=== PATIENT | female | born 1965 | race Caucasian/White ===

== ENCOUNTER 2019-04-27 14:35 | Outpatient (CLI) | payer MEDICAID, SELFPAY ==
[2019-04-27 15:24] LABS: Immunoglobulin IGG 584 mg/dL (700-1600); Immunoglobulin IGM 25 mg/dL (40-230)
[2019-04-27 16:24] LABS: Immunoglobulin IGA < 50 mg/dL (70-400)
== END 2019-04-27 14:36 | disposition home or self-care (01) ==
LOC: LAB 14:44
PROVIDERS: Family Provider Nurse Practitioner Family; PCP Nurse Practitioner Family; Visit Provider Internal Medicine Critical Care Medicine
DX: J67.9 Hypersensitivity pneumonitis due to unspecified organic dust (principal)
CPT/HCPCS: 36415; 82784

== ENCOUNTER 2019-05-18 14:25 | Outpatient (CLI) | payer MEDICAID, SELFPAY ==
--- NOTE | 2019-05-18 14:30 | CT_ITS ---
WS: [id number] High-resolution noncontrast chest CT. HISTORY: Evaluation of ILD TECHNIQUE: Supine and prone 1.25 mm imaging is performed through the lungs. Inspiration and expirator y imaging is also included. All CT scans at [facility] use at least one of these dose opti mization techniques: automated exposure control; mA and/or kV adjustment per patient size (includes t argeted exams where dose is matched to clinical indication); or iterative reconstruction. CONTRAST: None DLP: 1486.55 mGycm COMPARISON: 01/04/2019 and 05/28/2018 Lungs and central airway: Pulmonary hyperexpansion with changes of emphysema. Predominantly nodular i nterstitial thickening in the upper lung field bilaterally but greatest on the LEFT. There is pleural thickening in the LEFT upper thorax with mild bronchiectasis. Linear areas of interstitial thickenin g do not change on prone positioning. Bronchiectasis is also noted in the upper lung carpenter. There is volume loss and some tethering in the LEFT upper lobe. Mild nodular interstitial thickening continue s to a lesser extent in the RIGHT middle lobe and in the lower lung carpenter. Pleura: No pleural effusions. Mild pleural thickening LEFT upper lobe. Heart and pericardium: Normal size heart. No pericardial effusion. Mediastinum and davon: No adenopathy. Vessels: Normal size pulmonary artery and aorta. Chest wall and lower neck: No soft tissue masses. Upper abdomen: Calcification of the splenic hilum. Osseous structures: No destructive process. CT/CT chest wo con [id number] IMPRESSION: 1. Upper lobe predominance reticular nodular airspace disease with bronchiecta sis and mild volume loss in the LEFT upper lobe. Consider chronic hypersensitiv ity pneumonia and nonspecific interstitial pneumonia. 2. No pleural effusion. 3. Chronic emphysema.
== END 2019-05-18 14:26 | disposition home or self-care (01) ==
LOC: RADWPI 14:29
PROVIDERS: Family Provider Nurse Practitioner Family; PCP Nurse Practitioner Family; Visit Provider Internal Medicine Critical Care Medicine
DX: J84.9 Interstitial pulmonary disease, unspecified (principal); J47.9 Bronchiectasis, uncomplicated; J43.9 Emphysema, unspecified
CPT/HCPCS: 71250

== ENCOUNTER → 2019-06-02 13:58 | Outpatient (BNVA) | payer MEDICAID, SELFPAY | PROVIDERS: Family Provider Nurse Practitioner Family; PCP Nurse Practitioner Family; Visit Provider Nurse Practitioner | DX: F43.12 Post-traumatic stress disorder, chronic (principal); F34.0 Cyclothymic disorder | CPT/HCPCS: 90832; 99213 ==

== ENCOUNTER 2019-06-15 14:29 | Outpatient (CLI) | payer MEDICAID, SELFPAY ==
--- NOTE | 2019-06-15 15:33 | PFTS_ITS ---
Date of Study:06/15/2019 Date of Dictation: MECHANICS: Forced vital capacity (FVC) is normal. Forced expiratory volume in one second (FEV1) is normal. FEV1/FVC is normal. FLOW VOLUME LOOP: Normal. LUNG VOLUMES: Total lung capacity (TLC) is normal. Residual volume (RV) is reduced. DIFFUSING CAPACITY FOR CARBON MONOXIDE: Normal. INTERPRETATION: The pulmonary function tests are normal. The total lung capacity is normal. Gas exchange is normal. MTDD
== END 2019-06-15 14:30 | disposition home or self-care (01) ==
LOC: RT 14:31
PROVIDERS: Family Provider Nurse Practitioner Family; PCP Nurse Practitioner Family; Visit Provider Internal Medicine Critical Care Medicine
DX: R06.02 Shortness of breath (principal)
CPT/HCPCS: 94010; 94726; 94729

== ENCOUNTER → 2019-08-25 08:28 | Outpatient (BNVA) | payer MEDICAID, SELFPAY | PROVIDERS: Family Provider Nurse Practitioner Family; Visit Provider Nurse Practitioner | DX: F34.0 Cyclothymic disorder (principal); F43.12 Post-traumatic stress disorder, chronic | CPT/HCPCS: 99213 ==

== ENCOUNTER 2019-10-10 09:46 | Outpatient (CLI) | payer MEDICAID, SELFPAY ==
[2019-10-10 10:27] LABS: Basophils # 0.1 10^3/uL (0.0-0.1); Basophils % 1.1 %; Eosinophils # 0.2 10^3/uL (0.0-0.8); Eosinophils % 3.4 %; Hematocrit 38.1 % (37.0-47.0); Hemoglobin 12.6 g/dL (11.5-15.3); Lymphocytes # 1.2 10^3/uL (0.8-4.8); Lymphocytes % 23.3 %; Mean Corpuscular HGB Conc 33.1 g/dL (30.0-36.0); Mean Corpuscular Hemoglobin 31.5 pg (28.0-34.0); Mean Corpuscular Volume 95.3 fL (81-99); Mean Platelet Volume 9.1 fL (7.4-10.4); Monocytes # 0.5 10^3/uL (0.2-0.9); Monocytes % 9.6 %; Neutrophils # 3.3 10^3/uL (1.8-7.7); Neutrophils % 62.4 %; Nucleated Red Blood Cells % 0 %; Platelet Count 221 10^3/cmm (130-400); Red Cell Distribution Width 11.8 % (12.1-15.1); White Blood Count 5.3 10^3/uL (4.0-10.0)
[2019-10-10 11:02] LABS: Alanine Aminotransferase 15 U/L (0-33); Albumin Level 4.4 g/dL (3.5-5.2); Alkaline Phosphatase 117 IU/L (35-105); Anion Gap 15.5 (5-19); Aspartate Amino Transferase 24 U/L (0-32); Blood Urea Nitrogen 18 mg/dL (6-20); Calcium 9.4 mg/dL (8.5-10.5); Carbon Dioxide 25 mmol/L (22-29); Chloride 103 mmol/L (98-107); Globulin 1.7 g/dL (1.3-4.6); Glucose 111 mg/dL (65-115); Immunoglobulin IGG 502 mg/dL (700-1600); Immunoglobulin IGM 25 mg/dL (40-230); Lactate Dehydrogenase 257 U/L (135-214); Osmolality Calculated 285 mOsm/kg (285-295); Potassium 4.5 mmol/L (3.5-5.1); Sodium 139 mmol/L (136-145); Total Bilirubin 0.2 mg/dL (0.15-1.2); Total Protein 6.1 g/dL (6.6-8.7)
[2019-10-10 11:19] LABS: Immunoglobulin IGA < 50 mg/dL (70-400)
[2019-10-10 11:39] LABS: Erythrocyte Sedimentation Rate 12 mm/hr (0-15)
--- NOTE | 2019-10-10 20:36 | ONC FU_ITS ---
Dr. Yadav Patient Follow-Up Note Patient: Hortencia Sheldon Unit #: [id number]: 1965 Dicatated By: Srinivas Yadav M.D.Date of Visit:Oct 10, 2019 Onc Med Follow-up/Prog Note Chief Complaint: Lymphoma/iterstitial lung disease. History of Present Illness: This is a 54 year-old woman with extranodal marginal zone lymphoma. 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 She had stage III disease. She had complete response to treatment with 6 cycles of R-CHOP chemotherapy, which she completed in 2000. In October 2013 she was found on [address] scan to have multiple pulmonary nodules in the left upper lobe/lingula. She underwent bronchoscopy in October 2013 and in December 2013, with inconclusive biopsies on both occasions. She then underwent a VATS procedure in January 2014. Pathology at that time was reviewed at [facility] with the diagnosis of extranodal marginal zone lymphoma. She was then given further chemotherapy with bendamustine/Rituxan. As of September 2014 she had completed 6 cycles of treatment. She did have good response by follow-up CT scan, and she then began maintenance Rituxan at 2 month intervals. During subsequent follow-up, she was found on CT scan to have new groundglass airspace disease in the left lower lobe. At that point she was seen for second opinion evaluation at [facility]. It was recommended that she just continue her maintenance Rituxan. Her follow-up CT scans of the chest, abdomen, and pelvis on 02/12/2016 showed near complete resolution of the groundglass and airspace opacity in the lateral aspect of the left lower lobe, but with new groundglass and linear airspace opacity in the lateral aspect of the right lower lobe compared to previous study from June 2015. She was seen here in June 2016 because she desired to continue her care closer to home. She returned here on 08/26/2016 for her final infusion of maintenance Rituxan. She tolerated it well. Restaging CT scans of the chest, abdomen, and pelvis on 11/20/2016 showed stable groundglass infiltrates and parenchymal scarring in the left upper lobe, unchanged from previous studies. There were slightly more progressed tree in bud infiltrates within the right mddle lobe. There was no mediastinal or hilar adenopathy noted and there was no evidence of disease progression in the abdomen or pelvis. She then continued on observation/expectant management. Her medical history is otherwise significant for ulcerative colitis, GERD, and chronic insomnia. She has a history of smoking 1 pack of cigarettes daily, but only for 7 years. She quit smoking at age 29. INTERIM HISTORY: Her surveillance CT scans of the chest, abdomen, and pelvis on 09/11/2017 showed extensive progression of reticular nodular airspace disease throughout both lungs, greatest in the upper lobes. There was no lymphadenopathy noted in the chest, abdomen, or pelvis. She was treated empirically with a 14 day course of Levaquin and fluconazole. Repeat CT scan of the chest on 11/02/2017 showed no improvement in the nodular and reticular nodular airspace disease throughout both lungs. Arrangements were then made for pulmonary consultation with in [place]. She underwent bronchoscopy with transbronchial lung biopsies on 12/15/2017. Pathology showed multiple noncaseating granulomas, suspicious for sarcoid. It was sent to [facility] for review, and there was no evidence of lymphoma or other malignancy. She had a follow-up visit with Dr. Sheldon on 12/23/2017. Given the findings on the transbronchial lung biopsies, she was given a 6-week course of steroid therapy. Restaging CT scans of the chest, abdomen, and pelvis on 05/28/2018 showed chronic changes of fibrosis, atelectasis, and interstitial lung disease throughout the lungs, but with no significant progression of disease. There was no adenopathy or other evidence of recurrent lymphoma. She continued observation/expectant management. Repeat chest CT on 01/04/2019 showed significant progression of bilateral upper lobe and to a lesser extent bilateral lower lobe and right middle lobe reticulonodular interstitial lung disease. There was no evidence of lymphadenopathy. With those findings she was referred to Dr. Patel. On 02/28/2019 she underwent right thoracoscopy with biopsy of the right upper lobe. Pathology showed diffuse/extensive granulomatous and chronic inflammation. There was no evidence of malignancy. The stains for microorganisms were negative. She was then referred to Dr. 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 Her high resolution CT of the chest showed reticular opacities involving predominantly the upper lobes bilaterally. There was also evidence of bronchiectasis. Her hypersensitivity pneumonitis panel was negative. She was confirmed to have low serum immunoglobulin levels. She is seen for a follow-up visit. Overall she feels better. She is active, but she forces herself to do so. She is watching her diet. Her weight is down about 5 pounds. She reports having slight fever on a daily basis, with temperatures 0.3 to 0.4 degrees above normal. She has chills and sweating, worse at night. She reports having horrible allergy related symptoms including watery eyes, runny nose, and sinus drainage. She has shortness of breath with activity, but she says her breathing is not bad. She does report having cough productive of thick, green sputum. She says it just stays the same. She was given a Z-Jasper last week. She has sharp pain in the left parasternal area, which comes and goes. She complains that she has nausea all day every day. She also has acid reflux symptoms despite taking Protonix. She has chronic constipation. She has not been aware of any blood in the stool. She was having burning with urination, that is better now. She is also had skin irritation in the perineal area, sometimes with cracking and bleeding. She complains of dyspareunia. She has pain in her tailbone area. She also has pain in her shoulders, knees, and feet. She has been having some headache in the frontal area. She has been sleeping with a heating pad. She also takes ibuprofen about every other day. She has some problems with dysequilibrium. She has no focal neurologic symptoms. Medications: DiazePAM (10 mg) Tablet Oral Take as Directed, Diclofenac Sodium 1 (75 mg) Tablet, enteric coated Oral b.i.d., DULoxetine HCl 1 (60 mg) Capsule Delayed Release Particles Oral b.i.d., Pantoprazole Sodium 1 (40 mg) Tablet, enteric coated Oral daily, TraZODone HCl 1 (150 mg) Tablet Oral at bedtime Allergies: No Known Allergies. Review of Systems: Constitutional - Overall she feels better. She forces herself to be active. Her appetite is good. She is watching her diet. Her weight is down about 5 pounds. She reports having low-grade fever on a daily basis, in the range of 0.3 to 0.4 degrees above normal. She has chills and sweating, worse at night. ECOG score is 1, ENMT - She has allergy related symptoms including watery eyes, runny nose, and sinus drainage. No mouth sores. No sore throat or difficulty swallowing, Hematologic/Lymphatic - She complained that she bruises everywhere, Respiratory - She has shortness of breath with activity. She has cough poductive of greenish sputum. She has sharp pain in the left parasternal area, which comes and goes. She had one recent episode of hemoptysis, Cardiovascular - No angina pain. No palpitations, Gastrointestinal - She has nausea and she has acid reflux. She has chronic constipation. No blood in the stool or black stools, Genitourinary (F) - She was having dysuria, but it has improved. No hematuria. No urinary frequency. No urgency or incontinence. She also reports having dyspareunia. She reports having skin cracking and bleeding in the perineal area, Musculoskeletal - She has pain in the tailbone area. She also has pain in the shoulders, knees, and feet, Integumentary - No other skin changes, Neurologic - She has been having headaches and she has episodes of dysequilibrium. No numbness or tingling. No other focal neurologic symptoms, Psychiatric - She has anxiety/depression. She has chronic insomnia. Vital Signs: Performed on Oct 10, 2019 11:18 Height - 63.00 in Weight - 159.2 lbs (LOW) BSA - 1.76 sq.m BMI - 28.20 Temperature - 97.6 F (LOW) Pulse - 77 /min Respiration - 20 /min BP - 120/60 mm(hg) O2 Sat - 97 % Pain - 7 Physical Examination: Constitutional - She does not appear acutely ill, Eyes - Sclerae nonicteric. Conjunctivae clear, ENMT - No lesions noted in the oral cavity, Hematologic/Lymphatic - No cervical, clavicular, or axillary adenopathy, Respiratory - Lungs show diminished air movement bilaterally. There are scattered, slight wheezes which actually sound more like a squeak, Cardiovascular - Heart rhythm is regular. There is no murmur, gallop or rub noted, Abdomen - Mildly distended but soft. Liver and spleen are not enlarged. There is no abdominal mass or ascites noted and there is no inguinal adenopathy, Extremities - No edema. Dorsalis pedis pulses are palpable bilaterally, Integumentary - There is no apparent skin eruption, Neurologic - No focal neurologic deficits noted. Impression: 1. Patient with low-grade B cell lymphoma initially diagnosed in 2000. She had stage III disease, and she had a 13-year remission following treatment with R-CHOP chemotherapy. 2. She was then found to have extranodal marginal zone lymphoma with biopsy proven involvement in the left lung in March 2014. She had a good response to treatment with 6 cycles of bendamustine/Rituxan, completed in September 2014. She completed 2 years of maintenance Rituxan in August 2016. 3. During follow-up she had CT evidence of progressive pulmonary infiltrates. Her transbronchial biopsy in November 2017 showed noncaseating granulomas, suspicious for sarcoid. She had no response to steroid therapy. 4. She underwent right thoracoscopy with right upper lobe biopsy on 02/28/2019. Pathology showed diffuse/extensive granulomatous inflammation. Stains for microorganisms were negative, and there was no evidence for malignancy. 5. High resolution chest CT revealed reticular opacities involving the upper lobes bilaterally. She also was found to have hypogammaglobulinemia. 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 6. She has chronic cough, and there also was evidence of bronchiectasis on the high-resolution chest CT. Her other medical illnesses include: 7. Ulcerative colitis. 8. GERD. 9. Degenerative arthritis. 10. She has chronic insomnia. Plan: In the absence of any evidence of recurrent malignancy, she remains on observation/expectant management for lymphoma. I will confer with Dr. Morrissey regarding her further management, as I anticipate that she will be starting monthly replacement IVIG. In the meantime, I will check sputum culture, and I anticipate that she also will require antibiotic prophylaxis for the bronchiectasis. She also will be given a prescription for Premarin vaginal cream and for nystatin powder for her vaginal/perineal symptoms. Signed By: Srinivas Yadav M.D. <<Signature on File>>
== END 2019-10-10 09:47 | disposition home or self-care (01) ==
LOC: ONCMED 09:48
PROVIDERS: PCP Nurse Practitioner Family; Visit Provider Internal Medicine Medical Oncology
DX: D80.1 Nonfamilial hypogammaglobulinemia (principal); J84.89 Other specified interstitial pulmonary diseases; J47.9 Bronchiectasis, uncomplicated; C88.4 Extranodal marginal zone B-cell lymphoma of mucosa-associated lymphoid tissue [MALT-lymphoma]; L29.3 Anogenital pruritus, unspecified; K51.90 Ulcerative colitis, unspecified, without complications; K21.9 Gastro-esophageal reflux disease without esophagitis; M19.90 Unspecified osteoarthritis, unspecified site; F51.04 Psychophysiologic insomnia; Z92.22 Personal history of monoclonal drug therapy
CPT/HCPCS: 80053; 82784; 83615; 85025; 85651; 99214

== ENCOUNTER 2019-12-05 10:53 | Outpatient (CLI) | payer MEDICAID, SELFPAY ==
[2019-12-05 11:44] LABS: Basophils # 0.1 10^3/uL (0.0-0.1); Basophils % 0.9 %; Eosinophils # 0.3 10^3/uL (0.0-0.8); Eosinophils % 5.1 %; Hematocrit 39.2 % (37.0-47.0); Hemoglobin 12.7 g/dL (11.5-15.3); Lymphocytes # 1.2 10^3/uL (0.8-4.8); Lymphocytes % 21.2 %; Mean Corpuscular HGB Conc 32.4 g/dL (30.0-36.0); Mean Corpuscular Hemoglobin 30.4 pg (28.0-34.0); Mean Corpuscular Volume 93.8 fL (81-99); Monocytes # 0.5 10^3/uL (0.2-0.9); Monocytes % 9.2 %; Neutrophils # 3.58 10^3/uL (1.8-7.7); Neutrophils % 63.4 %; Nucleated Red Blood Cells % 0 %; Platelet Count 208 10^3/cmm (130-400); Red Blood Count 4.18 10^6/uL (4.1-5.3); Red Cell Distribution Width 11.5 % (12.1-15.1); White Blood Count 5.7 10^3/uL (4.0-10.0)
[2019-12-05 11:57] LABS: Alanine Aminotransferase 15 U/L (0-33); Albumin Level 4.1 g/dL (3.5-5.2); Alkaline Phosphatase 107 IU/L (35-105); Aspartate Amino Transferase 23 U/L (0-32); Blood Urea Nitrogen 14 mg/dL (6-20); Calcium 8.8 mg/dL (8.5-10.5); Carbon Dioxide 23 mmol/L (22-29); Chloride 104 mmol/L (98-107); Glomerular Filtration Rate 65.5 mL/min (90-130); Glucose 103 mg/dL (65-115); Immunoglobulin IGG 487 mg/dL (700-1600); Immunoglobulin IGM 25 mg/dL (40-230); Lactate Dehydrogenase 195 U/L (135-214); Osmolality Calculated 280 mOsm/kg (285-295); Sodium 137 mmol/L (136-145); Total Bilirubin 0.2 mg/dL (0.15-1.2); Total Protein 6.1 g/dL (6.6-8.7)
[2019-12-05 12:12] LABS: Immunoglobulin IGA < 50 mg/dL (70-400)
--- NOTE | 2019-12-05 20:51 | ONC FU_ITS ---
Dr. Yadav Patient Follow-Up Note Patient: Hortencia Sheldon Unit #: [id number]: 1965 Dicatated By: Srinivas Yadav M.D.Date of Visit:Dec 05, 2019 Onc Med Follow-up/Prog Note Chief Complaint: Lymphoma/interstitial lung disease. History of Present Illness: This is a 54 year-old woman with extranodal marginal zone lymphoma. 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 She had stage III disease. She had complete response to treatment with 6 cycles of R-CHOP chemotherapy, which she completed in 2000. In October 2013 she was found on [address] scan to have multiple pulmonary nodules in the left upper lobe/lingula. She underwent bronchoscopy in October 2013 and in December 2013, with inconclusive biopsies on both occasions. She then underwent a VATS procedure in January 2014. Pathology at that time was reviewed at [facility] with the diagnosis of extranodal marginal zone lymphoma. She was then given further chemotherapy with bendamustine/Rituxan. As of September 2014 she had completed 6 cycles of treatment. She did have good response by follow-up CT scan, and she then began maintenance Rituxan at 2 month intervals. During subsequent follow-up, she was found on CT scan to have new groundglass airspace disease in the left lower lobe. At that point she was seen for second opinion evaluation at [facility]. It was recommended that she just continue her maintenance Rituxan. Her follow-up CT scans of the chest, abdomen, and pelvis on 02/12/2016 showed near complete resolution of the groundglass and airspace opacity in the lateral aspect of the left lower lobe, but with new groundglass and linear airspace opacity in the lateral aspect of the right lower lobe compared to previous study from June 2015. She was seen here in June 2016 because she desired to continue her care closer to home. She returned here on 08/26/2016 for her final infusion of maintenance Rituxan. She tolerated it well. Restaging CT scans of the chest, abdomen, and pelvis on 11/20/2016 showed stable groundglass infiltrates and parenchymal scarring in the left upper lobe, unchanged from previous studies. There were slightly more progressed tree in bud infiltrates within the right mddle lobe. There was no mediastinal or hilar adenopathy noted and there was no evidence of disease progression in the abdomen or pelvis. She then continued on observation/expectant management. Her surveillance CT scans of the chest, abdomen, and pelvis on 09/11/2017 showed extensive progression of reticular nodular airspace disease throughout both lungs, greatest in the upper lobes. There was no lymphadenopathy noted in the chest, abdomen, or pelvis. She was treated empirically with a 14 day course of Levaquin and fluconazole. Repeat CT scan of the chest on 11/02/2017 showed no improvement in the nodular and reticular nodular airspace disease throughout both lungs. Arrangements were then made for pulmonary consultation with in [place]. She underwent bronchoscopy with transbronchial lung biopsies on 12/15/2017. Pathology showed multiple noncaseating granulomas, suspicious for sarcoid. It was sent to [facility] for review, and there was no evidence of lymphoma or other malignancy. She had a follow-up visit with Dr. Sheldon on 12/23/2017. Given the findings on the transbronchial lung biopsies, she was given a 6-week course of steroid therapy. Restaging CT scans of the chest, abdomen, and pelvis on 05/28/2018 showed chronic changes of fibrosis, atelectasis, and interstitial lung disease throughout the lungs, but with no significant progression of disease. There was no adenopathy or other evidence of recurrent lymphoma. She continued observation/expectant management. Repeat chest CT on 01/04/2019 showed significant progression of bilateral upper lobe and to a lesser extent bilateral lower lobe and right middle lobe reticulonodular interstitial lung disease. There was no evidence of lymphadenopathy. With those findings she was referred to Dr. Patel. On 02/28/2019 she underwent right thoracoscopy with biopsy of the right upper lobe. Pathology showed diffuse/extensive granulomatous and chronic inflammation. There was no evidence of malignancy. The stains for microorganisms were negative. She was then referred to Dr. 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 Her high resolution CT of the chest showed reticular opacities involving predominantly the upper lobes bilaterally. There was also evidence of bronchiectasis. Her hypersensitivity pneumonitis panel was negative. She was confirmed to have low serum immunoglobulin levels with IgG 584 mg/dL, IgA <50 mg/dL, and IgM 25 mg/dL. Her medical history is otherwise significant for ulcerative colitis, GERD, and chronic insomnia. She has a history of smoking 1 pack of cigarettes daily, but only for 7 years. She quit smoking at age 29. INTERIM HISTORY: I had seen her for a visit on 10/10/2019, as she had been recommended to begin monthly replacement IVIG. Her treatment, though, had to be postponed due to having potential contact with a COVID-19 patient and having 14 days of quarantine. She returns now for follow-up. She says she has been feeling good. She reports having good energy, and she says she has normal activity. Her ECOG score is 0. She has good appetite. She is watching her diet. She has not had fever. She has occasional hot flashes and sweating. She has allergy related sinus symptoms. She has not had sore mouth or throat. She does not have very much cough now, and she does not complain of shortness of breath. She has had no chest pain. She has been having nausea every day, but is now occurring just occasionally. She still has some acid reflux. She has horrible constipation, which is chronic. She reports having frequent urination, and she says it very occasionally her urine feels real hot. She continues to have pain in the tailbone area. She also has some joint pain, particularly in the fingers. She has sinus headaches. She has no focal neurologic symptoms. Medications: DiazePAM (10 mg) Tablet Oral Take as Directed, Diclofenac Sodium 1 (75 mg) Tablet, enteric coated Oral b.i.d., DULoxetine HCl 1 (60 mg) Capsule Delayed Release Particles Oral b.i.d., Pantoprazole Sodium 1 (40 mg) Tablet, enteric coated Oral daily, TraZODone HCl 1 (150 mg) Tablet Oral at bedtime Allergies: No Known Allergies. Review of Systems: Constitutional - She feels good. She has normal activity. Appetite is good and weight is stable. No fever. She just occasional hot flashes/sweating. ECOG score is 0, ENMT - She has allergy related sinus symptoms. No mouth sores. No sore throat or difficulty swallowing, Hematologic/Lymphatic - No abnormal bruising or bleeding, Respiratory - No shortness of breath. She has cough, which is generally nonproductive. No pleuritic pain or hemoptysis, Cardiovascular - No angina pain. No palpitations, Gastrointestinal - She has nausea, but now just occasionally. She has acid reflux. She has abdominal pain and constipation. No blood in the stool or black stools, Genitourinary (F) - No dysuria or hematuria. She has urinary frequency. No urgency or incontinence, Musculoskeletal - She has pain in her tailbone area and she has pain in her fingers, Integumentary - No skin rash, Neurologic - She has some sinus headaches. No dizziness. No numbness or tingling. No other focal neurologic symptoms, Psychiatric - She has anxiety and depression, but it is adequately managed with medication. She is sleeping OK with medication. Vital Signs: Performed on Dec 05, 2019 12:10 Height - 63.00 in Weight - 154.8 lbs (LOW) BSA - 1.73 sq.m BMI - 27.42 Temperature - 97.8 F (LOW) Pulse - 93 /min Respiration - 24 /min BP - 102/73 mm(hg) O2 Sat - 97 % Pain - 6 Physical Examination: Constitutional - She looks pretty good generally, Eyes - Sclerae nonicteric. Conjunctivae clear, ENMT - No lesions noted in the oral cavity, Hematologic/Lymphatic - No cervical, clavicular, or axillary adenopathy, Respiratory - Lungs sound clear, Cardiovascular - Heart rhythm is regular. There is no murmur, gallop or rub noted, Abdomen - Soft. Liver and spleen are not enlarged. There is no abdominal mass or ascites noted and there is no inguinal adenopathy, Extremities - No edema, Neurologic - No focal neurologic deficits noted. Lab/Imaging: Test performed on Dec 05, 2019 11:25 LDH (Total) 195 U/L Sodium 137 mmol/L Potassium 4.0 mmol/L Chloride 104 mmol/L CO2 23 mmol/L Anion Gap 14.0 BUN 14 mg/dL Creatinine 0.9 mg/dL Cr Clearance (Est) 82.4100 mL/min eGFR 65.5 mL/min Glucose 103 mg/dL Calcium 8.8 mg/dL Protein, Total 6.1 g/dL Albumin 4.1 g/dL Globulin 2.0 g/dL Bilirubin, Total 0.2 mg/dL ALT (SGPT) 15 U/L AST (SGOT) 23 U/L Alkaline Phosphatase 107 IU/L WBC 5.7 10 3/uL RBC 4.18 10 6/uL HGB 12.7 g/dL HCT 39.2 % MCV 93.8 fL MCH 30.4 pg MCHC 32.4 g/dL RDW 11.5 % Platelet Count 208 10 3/cmm MPV 10.0 fL Neutrophils 3.58 10 3/uL Lymphocytes 1.2 10 3/uL Monocytes 0.5 10 3/uL Eosinophils 0.3 10 3/uL Basophils 0.1 10 3/uL Neutrophil % 63.4 % Lymphocyte % 21.2 % Monocyte % 9.2 % Eosinophil % 5.1 % Basophils % 0.9 % NRBC % 0 % IgG 487 mg/dL IgA < 50 mg/dL IgM 25 mg/dL Impression: 1. Patient with low-grade B cell lymphoma initially diagnosed in 2000. She had stage III disease, and she had a 13-year remission following treatment with R-CHOP chemotherapy. 2. She was then found to have extranodal marginal zone lymphoma with biopsy proven involvement in the left lung in March 2014. She had a good response to treatment with 6 cycles of bendamustine/Rituxan, completed in September 2014. She completed 2 years of maintenance Rituxan in August 2016. 3. During follow-up she had CT evidence of progressive pulmonary infiltrates. Her transbronchial biopsy in November 2017 showed noncaseating granulomas, suspicious for sarcoid. She had no response to steroid therapy. 4. She underwent right thoracoscopy with right upper lobe biopsy on 02/28/2019. Pathology showed diffuse/extensive granulomatous inflammation. Stains for microorganisms were negative, and there was no evidence for malignancy. 5. High resolution chest CT revealed reticular opacities involving the upper lobes bilaterally. She also was found to have hypogammaglobulinemia. 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 6. She has had chronic cough, and there also was evidence of bronchiectasis on the high-resolution chest CT. Her other medical illnesses include: 7. Ulcerative colitis. 8. GERD. 9. Degenerative arthritis. 10. She has chronic insomnia. I had seen her in September 2019 and at that time she was scheduled to begin monthly replacement IVIG. However, the treatment was postponed, as she had potential contact with a COVID-19 patient and she required 14 days of quarantine. She just now returns for follow-up. Her overall clinical status has improved without any specific treatment. Plan: She remains on observation/expectant management for lymphoma. As she is feeling better now than she has in a long time, she prefers not to begin the monthly replacement IVIG. As such, I will just plan a follow-up visit in 3 months, I will plan to repeat her CT scans at a 1-year interval. Signed By: Srinivas Yadav M.D. <<Signature on File>>
== END 2019-12-05 10:54 | disposition home or self-care (01) ==
LOC: ONCMED 11:07
PROVIDERS: PCP Nurse Practitioner Family; Visit Provider Internal Medicine Medical Oncology
DX: Z08 Encounter for follow-up examination after completed treatment for malignant neoplasm (principal); Z85.72 Personal history of non-Hodgkin lymphomas; K51.90 Ulcerative colitis, unspecified, without complications; K21.9 Gastro-esophageal reflux disease without esophagitis; M19.90 Unspecified osteoarthritis, unspecified site; F51.04 Psychophysiologic insomnia; Z92.21 Personal history of antineoplastic chemotherapy
CPT/HCPCS: 36415; 80053; 82784; 83615; 85025; 99214

== ENCOUNTER → 2020-01-02 09:12 | Outpatient (BNVA) | payer MEDICAID, SELFPAY | PROVIDERS: PCP Nurse Practitioner Family; Visit Provider Nurse Practitioner | DX: F43.12 Post-traumatic stress disorder, chronic (principal); F34.0 Cyclothymic disorder | CPT/HCPCS: 99213 ==

== ENCOUNTER 2020-01-31 13:35 | Outpatient (CLI) | payer MEDICAID, SELFPAY ==
[2020-01-31 15:19] LABS: Basophils # 0.1 10^3/uL (0.0-0.1); Basophils % 0.9 %; Eosinophils # 0.1 10^3/uL (0.0-0.8); Eosinophils % 2.4 %; Hematocrit 37.4 % (37.0-47.0); Hemoglobin 12.5 g/dL (11.5-15.3); Lymphocytes # 1.2 10^3/uL (0.8-4.8); Lymphocytes % 20.2 %; Mean Corpuscular HGB Conc 33.4 g/dL (30.0-36.0); Mean Corpuscular Hemoglobin 30.8 pg (28.0-34.0); Mean Corpuscular Volume 92.1 fL (81-99); Mean Platelet Volume 9.5 fL (7.4-10.4); Monocytes # 0.4 10^3/uL (0.2-0.9); Monocytes % 7.5 %; Neutrophils # 3.93 10^3/uL (1.8-7.7); Neutrophils % 68.7 %; Nucleated Red Blood Cells % 0 %; Platelet Count 232 10^3/cmm (130-400); Red Blood Count 4.06 10^6/uL (4.1-5.3); Red Cell Distribution Width 11.5 % (12.1-15.1); White Blood Count 5.7 10^3/uL (4.0-10.0)
[2020-01-31 15:41] LABS: Alanine Aminotransferase 13 U/L (0-33); Albumin Level 4.5 g/dL (3.5-5.2); Alkaline Phosphatase 97 IU/L (35-105); Anion Gap 15.3 (5-19); Aspartate Amino Transferase 23 U/L (0-32); Blood Urea Nitrogen 14 mg/dL (6-20); Calcium 9.5 mg/dL (8.5-10.5); Carbon Dioxide 25 mmol/L (22-29); Chloride 104 mmol/L (98-107); Globulin 1.9 g/dL (1.3-4.6); Glomerular Filtration Rate 87.5 mL/min (90-130); Glucose 98 mg/dL (65-115); Osmolality Calculated 290 mOsm/kg (285-295); Potassium 4.3 mmol/L (3.5-5.1); Sodium 140 mmol/L (136-145); Total Bilirubin 0.3 mg/dL (0.15-1.2); Total Protein 6.4 g/dL (6.6-8.7)
[2020-01-31 20:11] LABS: Lactate Dehydrogenase 197 U/L (135-214)
--- NOTE | 2020-02-05 20:25 | ONC FU_ITS ---
[facility] Patient Note Patient: Hortencia Sheldon Unit #: [id number]: 1965 Dictated By: Matt VillasenorDate of Visit: Jan 31, 2020 Onc MED Follow-Up/Prog Note Chief Complaint: Lymphoma/interstitial lung disease. History of Present Illness: Mrs Sheldon is a 54 year-old woman with extranodal marginal zone lymphoma. 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 She had stage III disease. She had complete response to treatment with 6 cycles of R-CHOP chemotherapy, which she completed in 2000. In October 2013 she was found on [address] scan to have multiple pulmonary nodules in the left upper lobe/lingula. She underwent bronchoscopy in October 2013 and in December 2013, with inconclusive biopsies on both occasions. She then underwent a VATS procedure in January 2014. Pathology at that time was reviewed at [facility] with the diagnosis of extranodal marginal zone lymphoma. She was then given further chemotherapy with bendamustine/Rituxan. As of September 2014 she had completed 6 cycles of treatment. She did have good response by follow-up CT scan, and she then began maintenance Rituxan at 2 month intervals. During subsequent follow-up, she was found on CT scan to have new groundglass airspace disease in the left lower lobe. At that point she was seen for second opinion evaluation at [facility]. It was recommended that she just continue her maintenance Rituxan. Her follow-up CT scans of the chest, abdomen, and pelvis on 02/12/2016 showed near complete resolution of the groundglass and airspace opacity in the lateral aspect of the left lower lobe, but with new groundglass and linear airspace opacity in the lateral aspect of the right lower lobe compared to previous study from June 2015. She was seen here in June 2016 because she desired to continue her care closer to home. She returned here on 08/26/2016 for her final infusion of maintenance Rituxan. She tolerated it well. Restaging CT scans of the chest, abdomen, and pelvis on 11/20/2016 showed stable groundglass infiltrates and parenchymal scarring in the left upper lobe, unchanged from previous studies. There were slightly more progressed tree in bud infiltrates within the right mddle lobe. There was no mediastinal or hilar adenopathy noted and there was no evidence of disease progression in the abdomen or pelvis. She then continued on observation/expectant management. Her surveillance CT scans of the chest, abdomen, and pelvis on 09/11/2017 showed extensive progression of reticular nodular airspace disease throughout both lungs, greatest in the upper lobes. There was no lymphadenopathy noted in the chest, abdomen, or pelvis. She was treated empirically with a 14 day course of Levaquin and fluconazole. Repeat CT scan of the chest on 11/02/2017 showed no improvement in the nodular and reticular nodular airspace disease throughout both lungs. Arrangements were then made for pulmonary consultation with in [place]. She underwent bronchoscopy with transbronchial lung biopsies on 12/15/2017. Pathology showed multiple noncaseating granulomas, suspicious for sarcoid. It was sent to [facility] for review, and there was no evidence of lymphoma or other malignancy. She had a follow-up visit with Dr. Sheldon on 12/23/2017. Given the findings on the transbronchial lung biopsies, she was given a 6-week course of steroid therapy. Restaging CT scans of the chest, abdomen, and pelvis on 05/28/2018 showed chronic changes of fibrosis, atelectasis, and interstitial lung disease throughout the lungs, but with no significant progression of disease. There was no adenopathy or other evidence of recurrent lymphoma. She continued observation/expectant management. Repeat chest CT on 01/04/2019 showed significant progression of bilateral upper lobe and to a lesser extent bilateral lower lobe and right middle lobe reticulonodular interstitial lung disease. There was no evidence of lymphadenopathy. With those findings she was referred to Dr. Patel. On 02/28/2019 she underwent right thoracoscopy with biopsy of the right upper lobe. Pathology showed diffuse/extensive granulomatous and chronic inflammation. There was no evidence of malignancy. The stains for microorganisms were negative. She was then referred to Dr. 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 Her high resolution CT of the chest showed reticular opacities involving predominantly the upper lobes bilaterally. There was also evidence of bronchiectasis. Her hypersensitivity pneumonitis panel was negative. She was confirmed to have low serum immunoglobulin levels with IgG 584 mg/dL, IgA <50 mg/dL, and IgM 25 mg/dL. Her medical history is otherwise significant for ulcerative colitis, GERD, and chronic insomnia. She has a history of smoking 1 pack of cigarettes daily, but only for 7 years. She quit smoking at age 29. INTERIM HISTORY: Dr Yadav had seen her for a visit on 10/10/2019, as she had been recommended to begin monthly replacement IVIG. Her treatment, though, had to be postponed due to having potential contact with a COVID-19 patient and having 14 days of quarantine. She has developed no symptoms of COVID-19. Mrs. Sheldon presents today for unscheduled appointment. She states that she wanted to be seen because she is having bilateral lung pain. She states that she has had the lung pain and occasional productive cough for 2 to 3 months now and it is getting worse . She states it feels just like it did when she got diagnosed originally. She states that she has had some productive cough but denies any fever. She has allergies at times and states that the cough is probably from that. She has had a cough prior to her previous Covid exposure. It is not changed dramatically since that exposure. She states she has had no wheezing. But she is more short of breath with exertion. She denies any angina pain. She denies any orthopnea. She states her appetite is good her energy is fair not as good as it has been recently and has declined over the last month or so. She states she is changing therapist at [facility] and this has had however some concerned that she will be meeting with them later this week and she is looking forward to a new therapist. She denies any bowel or bladder problems. She has had no urinary symptoms. She denies any neuropathy. Her ECOG is 1. Past Medical History: Chronic insomnia Gastroesophageal reflux disease MALT lymphoma Ulcerative colitis in 2006 Past Surgical History: section in 1986, in 1993, and in 1996 Lung biopsy in 2013 Lung biopsy in 2000 Open reduction/fixation of left forearm fracture in 2000 Allergies: No Known Allergies. Medications: DiazePAM (10 mg) Tablet Oral Take as Directed Diclofenac Sodium 1 (75 mg) Tablet, enteric coated Oral b.i.d. DULoxetine HCl 1 (60 mg) Capsule Delayed Release Particles Oral b.i.d. Pantoprazole Sodium 1 (40 mg) Tablet, enteric coated Oral daily TraZODone HCl 1 (150 mg) Tablet Oral at bedtime Family History: Ms. Sheldon's mother is alive. Ms. Sheldon's father is alive. Ms. Sheldon has 1 brother who is alive. She has 1 sister who is alive. Both parents are still living, father at age 81 and mother at age 78. Her mother is been treated for colonic polyps. Her maternal grandmother had colon cancer. Her great-grandmother of Hodgkin's lymphoma. Social History: Ms. Sheldon is and she is a [employer]. Ms. Sheldon quit smoking 22 years ago but had smoked 1.0 pack/day for 7 years. She has no history of drinking. Ms. Sheldon reports the following support systems: lives with spouse, significant other, family, or friends, lives in own house, supportive family/friends willing to assist with needs, and adequate transportation available for expected visits. Her diet consists of regular meals. She indicates her activity level as: daily activities. She has a history of smoking 1 pack of cigarettes daily for 7 years. She quit at age 29. She does not drink alcohol. Review Of Symptoms: Constitutional Denies fevers, chills. Night sweats. Moderate fatigue. Allergic/Immunologic No reactions. Eyes Denies significant visual changes. No diplopia. No amaurosis. ENMT Denies changes in hearing, sore throat, mouth sores, difficulty or changes in swallowing ability. Sinus drainage. Endocrine Night sweats. Hematologic/Lymphatic Denies easy bruising or bleeding. The patient denies any tender or palpable lymph nodes. Respiratory increased dyspnea on exertion, she states she has pain in her lungs like she did when she was first diagnosed and persistent cough. Sometimes it is productive. Cardiovascular Denies anginal chest pain. Gastrointestinal Denies nausea, vomiting, diarrhea. Chronic constipation and heartburn-controlled. Genitourinary (F) No hematuria, hesitancy, incontinence, vaginal bleeding, discharge or other problems with urination. Musculoskeletal Joint pain. Integumentary Denies chronic rashes, inflammation, ulcerations or skin changes. Neurologic Denies headache, blurred vision. Psychiatric Depression, anxiety, and insomnia. She states she is seeing a provider at [facility] later this week and will be talking to them about increasing or changing her antidepressant. Vital Signs: Performed on Jan 31, 2020 13:42 Height - 63.00 in Weight - 150.6 lbs (LOW) BSA - 1.71 sq.m BMI - 26.68 Temperature - 98.1 F (LOW) Pulse - 75 /min Respiration - 18 /min BP - 106/69 mm(hg) O2 Sat - 96 % Pain - 3,1 - No physically strenuous activity, but ambulatory and able to carry out light or sedentary work (e.g. office work, light house work). (ECOG) Physical Examination: Constitutional Alert, oriented, no acute distress. Skin pink, warm and dry. Head Normocephalic; atraumatic. Eyes Conjunctivae and sclerae are clear and without icterus. Pupils are reactive and equal. Neck Supple without masses or thyromegaly. No jugular venous distension. Hematologic/Lymphatic No petechiae or purpura. No tender or palpable lymph nodes in the cervical or supraclavicular area. Respiratory Lungs are raspy bilaterally to auscultation with slight rhonchi but no wheezing. Cardiovascular Regular rate and rhythm of heart without murmurs,clicks, gallops or rubs. Chest Chest is symmetric without chest wall deformities. Abdomen Non-tender, non-distended, no masses, ascites .Good bowel sounds noted in all quads. No guarding or rebound tenderness. Back/Spine Non-tender to palpation. Extremities No visible deformities, no cyanosis, clubbing or edema. Musculoskeletal No tenderness or swelling, normal range of motion without obvious weakness. Integumentary No rashes or lesions. Neurologic No sensory or motor deficits, normal cerebellar function, normal gait. Psychiatric Alert and oriented times three. Coherent speech. Verbalizes understanding of our discussions today. Laboratory:Test performed on Jan 31, 2020 14:40 LDH (Total) 197 U/L Sodium 140 mmol/L Potassium 4.3 mmol/L Chloride 104 mmol/L CO2 25 mmol/L Anion Gap 15.3 BUN 14 mg/dL Creatinine 0.7 mg/dL Cr Clearance (Est) 105.9600 mL/min eGFR 87.5 mL/min Glucose 98 mg/dL Osmolality - Calculated 290 mOsm/kg Calcium 9.5 mg/dL Protein, Total 6.4 g/dL Albumin 4.5 g/dL Globulin 1.9 g/dL Bilirubin, Total 0.3 mg/dL ALT (SGPT) 13 U/L AST (SGOT) 23 U/L Alkaline Phosphatase 97 IU/L WBC 5.7 10 3/uL RBC 4.06 10 6/uL HGB 12.5 g/dL HCT 37.4 % MCV 92.1 fL MCH 30.8 pg MCHC 33.4 g/dL RDW 11.5 % Platelet Count 232 10 3/cmm MPV 9.5 fL Neutrophils 3.93 10 3/uL Lymphocytes 1.2 10 3/uL Monocytes 0.4 10 3/uL Eosinophils 0.1 10 3/uL Basophils 0.1 10 3/uL Neutrophil % 68.7 % Lymphocyte % 20.2 % Monocyte % 7.5 % Eosinophil % 2.4 % Basophils % 0.9 % NRBC % 0 % Test performed on Dec 05, 2019 11:25 IgG 487 mg/dL IgA < 50 mg/dL IgM 25 mg/dL Test performed on Oct 10, 2019 10:00 ESR (Sed Rate) 12 mm/hr Impression: 1. Patient with low-grade B cell lymphoma initially diagnosed in 2000. She had stage III disease, and she had a 13-year remission following treatment with R-CHOP chemotherapy. 2. She was then found to have extranodal marginal zone lymphoma with biopsy proven involvement in the left lung in March 2014. She had a good response to treatment with 6 cycles of bendamustine/Rituxan, completed in September 2014. She completed 2 years of maintenance Rituxan in August 2016. 3. During follow-up she had CT evidence of progressive pulmonary infiltrates. Her transbronchial biopsy in November 2017 showed noncaseating granulomas, suspicious for sarcoid. She had no response to steroid therapy. 4. She underwent right thoracoscopy with right upper lobe biopsy on 02/28/2019. Pathology showed diffuse/extensive granulomatous inflammation. Stains for microorganisms were negative, and there was no evidence for malignancy. 5. High resolution chest CT revealed reticular opacities involving the upper lobes bilaterally. She also was found to have hypogammaglobulinemia. 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 6. She has had chronic cough, and there also was evidence of bronchiectasis on the high-resolution chest CT. Her other medical illnesses include: 7. Ulcerative colitis. 8. GERD. 9. Degenerative arthritis. 10. She has chronic insomnia. I had seen her in September 2019 and at that time she was scheduled to begin monthly replacement IVIG. However, the treatment was postponed, as she had potential contact with a COVID-19 patient and she required 14 days of quarantine. Her overall clinical status had improved without any specific treatment. She presents today for an unscheduled visit with complaints of bilateral lung pain that has been persistent for several months now. She states that she had the pain prior to her Covid exposure and does not feel it is related. She has had no other Covid symptoms, such as loss of taste, smell or she is had no fever. Plan: 1. CT of the chest with contrast for concerns of persistent lung pain, shortness of breath and cough. 2. CBC, CMP, LDH, today for monitoring of her lymphoma. 3. She remains on observation/expectant management for lymphoma. As she had feeling better than she has in a long time at her last visit, she prefered not to begin the monthly replacement IVIG. She states she will consider if it would make her feel better now. She will await the labs and CT. 4. Follow-up to be determined after we see her lab results and her CTs. 5. Mrs. Sheldon was instructed to contact us in interim should questions or problems arise. Signed By: Matt Villasenor-, AOCNP Srinivas Yadav MD <<Signature on File>>
== END 2020-01-31 13:36 | disposition home or self-care (01) ==
LOC: ONCMED 13:38
PROVIDERS: PCP Nurse Practitioner Family; Visit Provider Nurse Practitioner
DX: C88.4 Extranodal marginal zone B-cell lymphoma of mucosa-associated lymphoid tissue [MALT-lymphoma] (principal); D80.1 Nonfamilial hypogammaglobulinemia; J84.89 Other specified interstitial pulmonary diseases; R05 Cough; R06.02 Shortness of breath; K21.9 Gastro-esophageal reflux disease without esophagitis; K51.90 Ulcerative colitis, unspecified, without complications; M19.90 Unspecified osteoarthritis, unspecified site; F51.04 Psychophysiologic insomnia; Z92.22 Personal history of monoclonal drug therapy
CPT/HCPCS: 36415; 80053; 83615; 85025; 99214

== ENCOUNTER 2020-02-07 14:41 | Outpatient (CLI) | payer MEDICAID, SELFPAY ==
--- NOTE | 2020-02-07 14:50 | CT_ITS ---
WS: [id number] CT CHEST WITH INTRAVENOUS CONTRAST HISTORY: BILATERAL LUNG PAIN, SHORTNESS OF BREATH, B-CELL LYMPHOMA TECHNIQUE: Contiguous 5 mm axial imaging performed on the thorax. Coronal and sagittal reformats are submitted. All CT scans at [facility] use at least one of these dose optimization techniq ues: automated exposure control; mA and/or kV adjustment per patient size (includes targeted exams wh ere dose is matched to clinical indication); or iterative reconstruction. CONTRAST: Omnipaque 300; 95 mL IV. DLP: 761.54 mGycm COMPARISON: 05/18/2019 Lungs and central airway: Mild volume loss in the LEFT lung. Interstitial thickening is moderate in t he LEFT upper lobe and mild in the RIGHT upper lobe. There has been very mild improvement in the inte rstitial thickening since 01/04/2019. There is an area of increasing fibrosis and atelectasis in the p osterior LEFT upper lobe. There is no discrete pneumonia. No pleural effusion. Pleura: Normal. No pleural effusion. Heart and pericardium: Normal size heart with no pericardial effusion. Mediastinum and davon: There are small mediastinal and hilar lymph nodes measuring up to 9 mm. No ward opathy. Vessels: Normal size aortic and pulmonary artery. No coronary artery calcifications. Chest wall and lower neck: No soft tissue masses. Upper abdomen: Negative. Osseous structures: No destructive process. CT/CT chest w con* [id number] IMPRESSION: 1. Volume loss with interstitial fibrotic changes in the upper lung carpenter. Mi ld improvement since 01/04/2019. 2. No pneumonia. 3. No adenopathy.
[2020-02-07] MEDS: iohexol 300 mg/mL 100 mL Btl IV (15:23)
== END 2020-02-07 14:42 | disposition home or self-care (01) ==
LOC: RADWPI 14:44
PROVIDERS: PCP Nurse Practitioner Family; Visit Provider Nurse Practitioner
DX: R06.02 Shortness of breath (principal); C88.4 Extranodal marginal zone B-cell lymphoma of mucosa-associated lymphoid tissue [MALT-lymphoma]
CPT/HCPCS: 71260; Q9967

== ENCOUNTER → 2020-03-02 11:21 | Outpatient (BNVA) | payer MEDICAID, SELFPAY | PROVIDERS: PCP Nurse Practitioner Family; Visit Provider Psychiatry & Neurology Psychiatry | DX: F34.0 Cyclothymic disorder (principal); F43.12 Post-traumatic stress disorder, chronic | CPT/HCPCS: 99214 ==

== ENCOUNTER 2020-03-07 14:07 | Outpatient (CLI) | payer MEDICAID, SELFPAY ==
[2020-03-07 14:37] LABS: Basophils % 0.5 %; Eosinophils # 0.1 10^3/uL (0.0-0.8); Eosinophils % 2.1 %; Hematocrit 40.1 % (37.0-47.0); Lymphocytes # 1.4 10^3/uL (0.8-4.8); Lymphocytes % 21.9 %; Mean Corpuscular HGB Conc 32.4 g/dL (30.0-36.0); Mean Corpuscular Hemoglobin 30.4 pg (28.0-34.0); Mean Corpuscular Volume 93.7 fL (81-99); Monocytes # 0.4 10^3/uL (0.2-0.9); Monocytes % 7.1 %; Neutrophils # 4.23 10^3/uL (1.8-7.7); Neutrophils % 68.1 %; Nucleated Red Blood Cells % 0 %; Platelet Count 241 10^3/cmm (130-400); Red Blood Count 4.28 10^6/uL (4.1-5.3); Red Cell Distribution Width 11.2 % (12.1-15.1); White Blood Count 6.2 10^3/uL (4.0-10.0)
[2020-03-07 20:56] LABS: Alanine Aminotransferase 14 U/L (0-33); Albumin Level 4.6 g/dL (3.5-5.2); Alkaline Phosphatase 100 IU/L (35-105); Anion Gap 15.7 (5-19); Aspartate Amino Transferase 25 U/L (0-32); Blood Urea Nitrogen 15 mg/dL (6-20); Calcium 9.8 mg/dL (8.5-10.5); Carbon Dioxide 28 mmol/L (22-29); Chloride 97 mmol/L (98-107); Globulin 1.9 g/dL (1.3-4.6); Glomerular Filtration Rate 65.5 mL/min (90-130); Glucose 110 mg/dL (65-115); Immunoglobulin IGA 50 mg/dL (70-400); Immunoglobulin IGG 521 mg/dL (700-1600); Immunoglobulin IGM 25 mg/dL (40-230); Lactate Dehydrogenase 192 U/L (135-214); Osmolality Calculated 285 mOsm/kg (285-295); Potassium 3.7 mmol/L (3.5-5.1); Sodium 137 mmol/L (136-145); Total Bilirubin 0.2 mg/dL (0.15-1.2); Total Protein 6.5 g/dL (6.6-8.7)
--- NOTE | 2020-03-11 11:56 | ONC FU_ITS ---
Dr. Yadav Patient Follow-Up Note Patient: Hortencia Sheldon Unit #: [id number]: 1965 Dicatated By: Srinivas Yadav M.D.Date of Visit:Mar 07, 2020 Onc Med Follow-up/Prog Note Chief Complaint: Lymphoma/interstitial lung disease. History of Present Illness: This is a 54 year-old woman with extranodal marginal zone lymphoma. 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 She had stage III disease. She had complete response to treatment with 6 cycles of R-CHOP chemotherapy, which she completed in 2000. In October 2013 she was found on [address] scan to have multiple pulmonary nodules in the left upper lobe/lingula. She underwent bronchoscopy in October 2013 and in December 2013, with inconclusive biopsies on both occasions. She then underwent a VATS procedure in January 2014. Pathology at that time was reviewed at [facility] with the diagnosis of extranodal marginal zone lymphoma. She was then given further chemotherapy with bendamustine/Rituxan. As of September 2014 she had completed 6 cycles of treatment. She did have good response by follow-up CT scan, and she then began maintenance Rituxan at 2 month intervals. During subsequent follow-up, she was found on CT scan to have new groundglass airspace disease in the left lower lobe. At that point she was seen for second opinion evaluation at [facility]. It was recommended that she just continue her maintenance Rituxan. Her follow-up CT scans of the chest, abdomen, and pelvis on 02/12/2016 showed near complete resolution of the groundglass and airspace opacity in the lateral aspect of the left lower lobe, but with new groundglass and linear airspace opacity in the lateral aspect of the right lower lobe compared to previous study from June 2015. She was seen here in June 2016 because she desired to continue her care closer to home. She returned here on 08/26/2016 for her final infusion of maintenance Rituxan. She tolerated it well. Restaging CT scans of the chest, abdomen, and pelvis on 11/20/2016 showed stable groundglass infiltrates and parenchymal scarring in the left upper lobe, unchanged from previous studies. There were slightly more progressed tree in bud infiltrates within the right mddle lobe. There was no mediastinal or hilar adenopathy noted and there was no evidence of disease progression in the abdomen or pelvis. She then continued on observation/expectant management. Her surveillance CT scans of the chest, abdomen, and pelvis on 09/11/2017 showed extensive progression of reticular nodular airspace disease throughout both lungs, greatest in the upper lobes. There was no lymphadenopathy noted in the chest, abdomen, or pelvis. She was treated empirically with a 14 day course of Levaquin and fluconazole. Repeat CT scan of the chest on 11/02/2017 showed no improvement in the nodular and reticular nodular airspace disease throughout both lungs. Arrangements were then made for pulmonary consultation with in [place]. She underwent bronchoscopy with transbronchial lung biopsies on 12/15/2017. Pathology showed multiple noncaseating granulomas, suspicious for sarcoid. It was sent to [facility] for review, and there was no evidence of lymphoma or other malignancy. She had a follow-up visit with Dr. Sheldon on 12/23/2017. Given the findings on the transbronchial lung biopsies, she was given a 6-week course of steroid therapy. Restaging CT scans of the chest, abdomen, and pelvis on 05/28/2018 showed chronic changes of fibrosis, atelectasis, and interstitial lung disease throughout the lungs, but with no significant progression of disease. There was no adenopathy or other evidence of recurrent lymphoma. She continued observation/expectant management. Repeat chest CT on 01/04/2019 showed significant progression of bilateral upper lobe and to a lesser extent bilateral lower lobe and right middle lobe reticulonodular interstitial lung disease. There was no evidence of lymphadenopathy. With those findings she was referred to Dr. Patel. On 02/28/2019 she underwent right thoracoscopy with biopsy of the right upper lobe. Pathology showed diffuse/extensive granulomatous and chronic inflammation. There was no evidence of malignancy. The stains for microorganisms were negative. She was then referred to Dr. 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 Her high resolution CT of the chest showed reticular opacities involving predominantly the upper lobes bilaterally. There was also evidence of bronchiectasis. Her hypersensitivity pneumonitis panel was negative. She was confirmed to have low serum immunoglobulin levels with IgG 584 mg/dL, IgA <50 mg/dL, and IgM 25 mg/dL. Her medical history is otherwise significant for ulcerative colitis, GERD, and chronic insomnia. She has a history of smoking 1 pack of cigarettes daily, but only for 7 years. She quit smoking at age 29. INTERIM HISTORY: I had seen her for a visit on 10/10/2019, as she had been recommended to begin monthly replacement IVIG. Her treatment, though, had to be postponed due to having potential contact with a COVID-19 patient and having 14 days of quarantine, and ultimately she opted not to start the IVIG. Repeat chest CT on 02/07/2020 showed moderately severe interstitial thickening in the left upper lobe and mild changes in the right upper lobe. There was very mild interval improvement compared to the December 2018 study. There was an area of increasing fibrosis and atelectasis in the posterior left upper lobe. There was no pleural effusion. Small mediastinal and hilar lymph nodes measured up to 9 mm. There was no pathologic adenopathy. She is seen for a follow-up visit. Her main complaint is that her colitis is taking her over . She has pain in the lower abdomen radiating around to the back, and she says the pain is unbelievable. She has associated constipation which she has been managing with an [id number] laxative. She says that MiraLAX did not work. She also has heartburn and acid reflux, she says that medication is not working well either. Her energy has been okay, but she is slowing down. ECOG score is 1. She complains that she has no appetite. Her weight is down about 10 pounds since September. She has not had fever. She does complain of having hot flashes and cold sweats. She has some shortness of breath. She has cough productive of green sputum. She had a recent episode of pain in the substernal/xiphoid area which lasted for couple of hours. She complains that her urine is hot and she has some discomfort with voiding. She has arthritis pain in her hands and she also has chronic pain in the coccygeal area. She has to sleep on a heating pad. She does not complain of headache. She has episodes of vertigo. She has no focal neurologic symptoms. She is followed at [facility] for anxiety/depression, and she has started a new medication for it. Medications: DiazePAM (10 mg) Tablet Oral Take as Directed, Diclofenac Sodium 1 (75 mg) Tablet, enteric coated Oral b.i.d., DULoxetine HCl 1 (60 mg) Capsule Delayed Release Particles Oral b.i.d., Pantoprazole Sodium 1 (40 mg) Tablet, enteric coated Oral daily, TraZODone HCl 1 (150 mg) Tablet Oral at bedtime Allergies: No Known Allergies. Review of Systems: Constitutional - Her energy has been okay, but she has been slowing down. She complained that she has no appetite. Her weight is down 10 pounds since September. She has not had fever. She reports having hot flashes and cold sweats. ECOG score is 1, ENMT - She has sinus drainage. No mouth sores. No sore throat or difficulty swallowing, Hematologic/Lymphatic - She bruises easily, Respiratory - She has some shortness of breath. She has cough productive of green sputum. No pleuritic pain or hemoptysis, Cardiovascular - Recently she had an episode of pain in the substernal/subxiphoid area. No palpitations, Gastrointestinal - No nausea or vomiting. She has heartburn and acid reflux, she says her medication is not working very well. She has abdominal pain and constipation. No blood in the stool or black stools, Genitourinary (F) - She complains that her urine is hot and she has some discomfort with voiding. No hematuria. No urinary frequency. No urgency or incontinence, Musculoskeletal - She has joint pain, mainly in her hands. She also complains of chronic pain in the coccygeal area. She has to sleep on a heating pad, Neurologic - No headache. She has episodes of vertigo. No numbness or tingling. No other focal neurologic symptoms, Psychiatric - She has started a new medication for anxiety/depression. She has insomnia. Vital Signs: Performed on Mar 07, 2020 15:40 Height - 63.00 in Weight - 148.0 lbs (LOW) BSA - 1.70 sq.m BMI - 26.22 Temperature - 97.6 F (LOW) Pulse - 94 /min Respiration - 18 /min BP - 115/70 mm(hg) O2 Sat - 97 % Pain - 7 Physical Examination: Constitutional - She looks pretty good generally, Eyes - Sclerae nonicteric. Conjunctivae clear, ENMT - No lesions noted in the oral cavity, Hematologic/Lymphatic - No cervical, clavicular, or axillary adenopathy, Respiratory - Lungs sound clear. She has pretty good air movement bilaterally, Cardiovascular - Heart rhythm is regular. There is no murmur, gallop or rub noted, Abdomen - Soft. There is mild tenderness in the lower abdomen. Liver and spleen are not enlarged. There is no abdominal mass or ascites noted and there is no inguinal adenopathy, Extremities - No edema, Neurologic - No focal neurologic deficits noted. Lab/Imaging: Test performed on Mar 07, 2020 14:24 LDH (Total) 192 U/L Sodium 137 mmol/L Potassium 3.7 mmol/L Chloride 97 mmol/L CO2 28 mmol/L Anion Gap 15.7 BUN 15 mg/dL Creatinine 0.9 mg/dL Cr Clearance (Est) 82.4100 mL/min eGFR 65.5 mL/min Glucose 110 mg/dL Osmolality - Calculated 285 mOsm/kg Calcium 9.8 mg/dL Protein, Total 6.5 g/dL Albumin 4.6 g/dL Globulin 1.9 g/dL Bilirubin, Total 0.2 mg/dL ALT (SGPT) 14 U/L AST (SGOT) 25 U/L Alkaline Phosphatase 100 IU/L WBC 6.2 10 3/uL RBC 4.28 10 6/uL HGB 13.0 g/dL HCT 40.1 % MCV 93.7 fL MCH 30.4 pg MCHC 32.4 g/dL RDW 11.2 % Platelet Count 241 10 3/cmm MPV 9.0 fL Neutrophils 4.23 10 3/uL Lymphocytes 1.4 10 3/uL Monocytes 0.4 10 3/uL Eosinophils 0.1 10 3/uL Basophils 0.0 10 3/uL Neutrophil % 68.1 % Lymphocyte % 21.9 % Monocyte % 7.1 % Eosinophil % 2.1 % Basophils % 0.5 % NRBC % 0 % IgG 521 mg/dL IgA 50 mg/dL IgM 25 mg/dL Impression: 1. Patient with low-grade B cell lymphoma initially diagnosed in 2000. She had stage III disease, and she had a 13-year remission following treatment with R-CHOP chemotherapy. 2. She was then found to have extranodal marginal zone lymphoma with biopsy proven involvement in the left lung in March 2014. She had a good response to treatment with 6 cycles of bendamustine/Rituxan, completed in September 2014. She completed 2 years of maintenance Rituxan in August 2016. 3. During follow-up she had CT evidence of progressive pulmonary infiltrates. Her transbronchial biopsy in November 2017 showed noncaseating granulomas, suspicious for sarcoid. She had no response to steroid therapy. 4. She underwent right thoracoscopy with right upper lobe biopsy on 02/28/2019. Pathology showed diffuse/extensive granulomatous inflammation. Stains for microorganisms were negative, and there was no evidence for malignancy. 5. High resolution chest CT revealed reticular opacities involving the upper lobes bilaterally. She also was found to have hypogammaglobulinemia. 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 6. She has had chronic cough, and there also was evidence of bronchiectasis on the high-resolution chest CT. Her other medical illnesses include: 7. Ulcerative colitis. 8. GERD. 9. Degenerative arthritis. 10. She has chronic insomnia. I had seen her in September 2019 and at that time she was recommended to begin monthly replacement IVIG. However, the treatment was postponed, as she had potential contact with a COVID-19 patient and she required 14 days of quarantine. In the meantime, she ultimately decided against starting the IVIG. She has remained on observation/symptomatic management. Her repeat chest CT on 02/07/2020 actually showed mild improvement compared to the December 2018 study. She continues to have some shortness of breath and productive cough. Her most significant complaint, though, has been worsening abdominal pain and constipation, which she attributes to ulcerative colitis. Plan: She remains on observation/expectant management for lymphoma and for the interstitial lung disease. I will contact Dr. Jean-Baptiste regard to further management of her GI symptoms. I will tentatively plan a follow-up visit in 3 months. Signed By: Srinivas Yadav M.D. <<Signature on File>>
== END 2020-03-07 14:08 | disposition home or self-care (01) ==
LOC: ONCMED 14:09
PROVIDERS: PCP Family Medicine; Visit Provider Internal Medicine Medical Oncology
DX: C88.4 Extranodal marginal zone B-cell lymphoma of mucosa-associated lymphoid tissue [MALT-lymphoma] (principal); J84.89 Other specified interstitial pulmonary diseases; K59.00 Constipation, unspecified; R10.30 Lower abdominal pain, unspecified; D80.1 Nonfamilial hypogammaglobulinemia; D84.821 Immunodeficiency due to drugs; T45.1X5S Adverse effect of antineoplastic and immunosuppressive drugs, sequela; J47.9 Bronchiectasis, uncomplicated; K51.90 Ulcerative colitis, unspecified, without complications; G47.00 Insomnia, unspecified; F51.04 Psychophysiologic insomnia
CPT/HCPCS: 36415; 80053; 82784; 83615; 85025; 99214

== ENCOUNTER → 2020-04-03 09:09 | Outpatient (BNVA) | payer MEDICAID, SELFPAY | PROVIDERS: PCP Nurse Practitioner Family; Visit Provider Psychiatry & Neurology Psychiatry | DX: F34.0 Cyclothymic disorder (principal); F43.12 Post-traumatic stress disorder, chronic | CPT/HCPCS: 99214 ==

== ENCOUNTER → 2020-05-17 15:43 | Outpatient (BNVA) | payer MEDICAID, SELFPAY | PROVIDERS: PCP Nurse Practitioner Family; Visit Provider Psychiatry & Neurology Psychiatry | DX: F43.12 Post-traumatic stress disorder, chronic (principal); F34.0 Cyclothymic disorder | CPT/HCPCS: 99214 ==

== ENCOUNTER 2020-06-20 14:41 | Outpatient (CLI) | payer MEDICAID, SELFPAY ==
[2020-06-20 15:13] LABS: Basophils # 0.1 10^3/uL (0.0-0.1); Basophils % 0.8 %; Eosinophils # 0.3 10^3/uL (0.0-0.8); Hematocrit 39.7 % (37.0-47.0); Hemoglobin 13.1 g/dL (11.5-15.3); Lymphocytes # 1.6 10^3/uL (0.8-4.8); Lymphocytes % 24.7 %; Mean Corpuscular Hemoglobin 30.8 pg (28.0-34.0); Mean Corpuscular Volume 93.2 fL (81-99); Mean Platelet Volume 9.5 fL (7.4-10.4); Monocytes # 0.5 10^3/uL (0.2-0.9); Monocytes % 8.1 %; Neutrophils # 3.93 10^3/uL (1.8-7.7); Neutrophils % 62.1 %; Nucleated Red Blood Cells % 0 %; Platelet Count 232 10^3/cmm (130-400); Red Blood Count 4.26 10^6/uL (4.1-5.3); White Blood Count 6.3 10^3/uL (4.0-10.0)
[2020-06-20 15:34] LABS: Lactate Dehydrogenase 237 U/L (135-214)
[2020-06-20 16:59] LABS: Erythrocyte Sedimentation Rate 12 mm/hr (0-15)
== END 2020-06-20 14:42 | disposition home or self-care (01) ==
LOC: ONCMED 14:44
PROVIDERS: PCP Family Medicine; Visit Provider Internal Medicine Medical Oncology
DX: C88.4 Extranodal marginal zone B-cell lymphoma of mucosa-associated lymphoid tissue [MALT-lymphoma] (principal)
CPT/HCPCS: 83615; 85025; 85651

== ENCOUNTER 2020-06-21 15:04 | Outpatient (CLI) | payer MEDICAID, SELFPAY ==
[2020-06-21 22:52] LABS: Alanine Aminotransferase 21 U/L (0-33); Albumin Level 4.6 g/dL (3.5-5.2); Alkaline Phosphatase 90 IU/L (35-105); Anion Gap 13.5 (5-19); Aspartate Amino Transferase 26 U/L (0-32); Blood Urea Nitrogen 11 mg/dL (6-20); Calcium 9.3 mg/dL (8.5-10.5); Carbon Dioxide 28 mmol/L (22-29); Chloride 101 mmol/L (98-107); Globulin 2.1 g/dL (1.3-4.6); Glucose 79 mg/dL (65-115); Osmolality Calculated 284 mOsm/kg (285-295); Potassium 4.5 mmol/L (3.5-5.1); Sodium 138 mmol/L (136-145); Total Bilirubin 0.2 mg/dL (0.15-1.2); Total Protein 6.7 g/dL (6.6-8.7)
--- NOTE | 2020-06-24 11:14 | ONC FU_ITS ---
Dr. Yadav Patient Follow-Up Note Patient: Hortencia Sheldon Unit #: [id number]: 1965 Dicatated By: Srinivas Yadav M.D.Date of Visit:Jun 21, 2020 Onc Med Follow-up/Prog Note Chief Complaint: Lymphoma/interstitial lung disease. History of Present Illness: This is a 54 year-old woman with extranodal marginal zone lymphoma. 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 She had stage III disease. She had complete response to treatment with 6 cycles of R-CHOP chemotherapy, which she completed in 2000. In October 2013 she was found on [address] scan to have multiple pulmonary nodules in the left upper lobe/lingula. She underwent bronchoscopy in October 2013 and in December 2013, with inconclusive biopsies on both occasions. She then underwent a VATS procedure in January 2014. Pathology at that time was reviewed at [facility] with the diagnosis of extranodal marginal zone lymphoma. She was then given further chemotherapy with bendamustine/Rituxan. As of September 2014 she had completed 6 cycles of treatment. She did have good response by follow-up CT scan, and she then began maintenance Rituxan at 2 month intervals. During subsequent follow-up, she was found on CT scan to have new groundglass airspace disease in the left lower lobe. At that point she was seen for second opinion evaluation at [facility]. It was recommended that she just continue her maintenance Rituxan. Her follow-up CT scans of the chest, abdomen, and pelvis on 02/12/2016 showed near complete resolution of the groundglass and airspace opacity in the lateral aspect of the left lower lobe, but with new groundglass and linear airspace opacity in the lateral aspect of the right lower lobe compared to previous study from June 2015. She was seen here in June 2016 because she desired to continue her care closer to home. She returned here on 08/26/2016 for her final infusion of maintenance Rituxan. She tolerated it well. Restaging CT scans of the chest, abdomen, and pelvis on 11/20/2016 showed stable groundglass infiltrates and parenchymal scarring in the left upper lobe, unchanged from previous studies. There were slightly more progressed tree in bud infiltrates within the right mddle lobe. There was no mediastinal or hilar adenopathy noted and there was no evidence of disease progression in the abdomen or pelvis. She then continued on observation/expectant management. Her surveillance CT scans of the chest, abdomen, and pelvis on 09/11/2017 showed extensive progression of reticular nodular airspace disease throughout both lungs, greatest in the upper lobes. There was no lymphadenopathy noted in the chest, abdomen, or pelvis. She was treated empirically with a 14 day course of Levaquin and fluconazole. Repeat CT scan of the chest on 11/02/2017 showed no improvement in the nodular and reticular nodular airspace disease throughout both lungs. Arrangements were then made for pulmonary consultation with in [place]. She underwent bronchoscopy with transbronchial lung biopsies on 12/15/2017. Pathology showed multiple noncaseating granulomas, suspicious for sarcoid. It was sent to [facility] for review, and there was no evidence of lymphoma or other malignancy. She had a follow-up visit with Dr. Sheldon on 12/23/2017. Given the findings on the transbronchial lung biopsies, she was given a 6-week course of steroid therapy. Restaging CT scans of the chest, abdomen, and pelvis on 05/28/2018 showed chronic changes of fibrosis, atelectasis, and interstitial lung disease throughout the lungs, but with no significant progression of disease. There was no adenopathy or other evidence of recurrent lymphoma. She continued observation/expectant management. Repeat chest CT on 01/04/2019 showed significant progression of bilateral upper lobe and to a lesser extent bilateral lower lobe and right middle lobe reticulonodular interstitial lung disease. There was no evidence of lymphadenopathy. With those findings she was referred to Dr. Patel. On 02/28/2019 she underwent right thoracoscopy with biopsy of the right upper lobe. Pathology showed diffuse/extensive granulomatous and chronic inflammation. There was no evidence of malignancy. The stains for microorganisms were negative. She was then referred to Dr. 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 Her high resolution CT of the chest showed reticular opacities involving predominantly the upper lobes bilaterally. There was also evidence of bronchiectasis. Her hypersensitivity pneumonitis panel was negative. She was confirmed to have low serum immunoglobulin levels with IgG 584 mg/dL, IgA <50 mg/dL, and IgM 25 mg/dL. Her medical history is otherwise significant for ulcerative colitis, GERD, and chronic insomnia. She has a history of smoking 1 pack of cigarettes daily, but only for 7 years. She quit smoking at age 29. INTERIM HISTORY: I had seen her for a visit on 10/10/2019, as she had been recommended to begin monthly replacement IVIG. Her treatment, though, had to be postponed due to having potential contact with a COVID-19 patient and having 14 days of quarantine, and ultimately she opted not to start the IVIG. Repeat chest CT on 02/07/2020 showed moderately severe interstitial thickening in the left upper lobe and mild changes in the right upper lobe. There was very mild interval improvement compared to the December 2018 study. There was an area of increasing fibrosis and atelectasis in the posterior left upper lobe. There was no pleural effusion. Small mediastinal and hilar lymph nodes measured up to 9 mm. There was no pathologic adenopathy. She continued observation/symptomatic management. She is seen for a follow-up visit. She has been feeling pretty good, though she has ongoing problems with abdominal pain associated with her ulcerative colitis, but she has chronic constipation rather than diarrhea. She is managing it with MiraLAX and water with Dulcolax added occasionally. She occasionally has mucus in her stool, but she has not been aware of having any blood in the stool. She also has been having a lot of acid reflux, which she has been managing with [id number] medication. She has limited activity. She is able to do light work as long as she can sit and rest. Her appetite has been okay. She has not had fever. She does have hot flashes and sweating, but does seem to be getting better. She has had a lot of sinus drainage and she sometimes has sore throat. Her cough had gotten pretty bad, but that did improve with antibiotic therapy. She has shortness of breath and she has been having to use her inhaler more frequently. She has had sharp pain in the left parasternal area and in her mid back on the left side. She has no complaints. She has fairly generalized joint pain. She has headaches frequently, but she says they do not stay. She sometimes has dizziness, mainly with looking up or getting up too fast. She has no focal neurologic symptoms. Medications: DiazePAM (10 mg) Tablet Oral Take as Directed, Diclofenac Sodium 1 (75 mg) Tablet, enteric coated Oral b.i.d., DULoxetine HCl 1 (60 mg) Capsule Delayed Release Particles Oral b.i.d., Pantoprazole Sodium 1 (40 mg) Tablet, enteric coated Oral daily, TraZODone HCl 1 (150 mg) Tablet Oral at bedtime Allergies: No Known Allergies. Vital Signs: Performed on Jun 21, 2020 15:12 Height - 63.00 in Weight - 153.2 lbs (HIGH) BSA - 1.73 sq.m BMI - 27.14 Temperature - 97.6 F (LOW) Pulse - 79 /min Respiration - 18 /min BP - 114/75 mm(hg) O2 Sat - 99 % Pain - 4 Fatigue - 0 Physical Examination: Constitutional - She looks pretty good generally, Eyes - Sclerae nonicteric. Conjunctivae clear, ENMT - No lesions noted in the oral cavity, Hematologic/Lymphatic - No cervical, clavicular, or axillary adenopathy, Respiratory - Lungs sound clear. She has pretty good air movement bilaterally, Cardiovascular - Heart rhythm is regular. There is no murmur, gallop or rub noted, Abdomen - Soft and non-tender. Liver and spleen are not enlarged. There is no abdominal mass or ascites noted and there is no inguinal adenopathy, Extremities - No edema. Dorsalis pedis pulses are palpable bilaterally, Neurologic - No focal neurologic deficits noted. Lab/Imaging: CBC shows hemoglobin 13.1 g, white blood cell count 6300, and platelet count 232,000. Comprehensive metabolic profile is unremarkable. The LDH is slightly elevated at 237/214 U/L. Problem List: 1. Low-grade B cell lymphoma, stage III at initial diagnosis in 2000. She had a 13-year remission following treatment with R-CHOP chemotherapy. 2. She was then found to have extranodal marginal zone lymphoma with biopsy proven involvement in the left lung in March 2014. She had a good response to treatment with 6 cycles of bendamustine/Rituxan, completed in September 2014. She completed 2 years of maintenance Rituxan in August 2016. 3. During follow-up she had CT evidence of progressive pulmonary infiltrates. Her transbronchial biopsy in November 2017 showed noncaseating granulomas, suspicious for sarcoid. She had no response to steroid therapy. 4. She underwent right thoracoscopy with right upper lobe biopsy on 02/28/2019. Pathology showed diffuse/extensive granulomatous inflammation. Stains for microorganisms were negative, and there was no evidence for malignancy. 5. High resolution chest CT revealed reticular opacities involving the upper lobes bilaterally. She also was found to have hypogammaglobulinemia. 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 6. She has had chronic cough, and there also was evidence of bronchiectasis on the high-resolution chest CT. 7. Ulcerative colitis. 8. GERD. 9. Degenerative arthritis. 10. She has chronic insomnia. I had seen her in September 2019 and at that time she was recommended to begin monthly replacement IVIG. However, the treatment was postponed, as she had potential contact with a COVID-19 patient and she required 14 days of quarantine. In the meantime, she ultimately decided against starting the IVIG. She has remained on observation/symptomatic management. Her repeat chest CT on 02/07/2020 actually showed mild improvement compared to the December 2018 study. She continues to have some shortness of breath and productive cough. Her most significant complaint, though, has been worsening abdominal pain and constipation, which she attributes to ulcerative colitis. Problems Addressed with this Encounter and Plan: 1. Patient with low-grade B cell lymphoma, stage III at initial diagnosis in 2000. She had a 13-year remission following treatment with R-CHOP chemotherapy. In March 2014 she was found to have extranodal marginal zone lymphoma with biopsy proven involvement in the left lung. She had a good response to treatment with 6 cycles of bendamustine/Rituxan, completed in September 2014. She completed 2 years of maintenance Rituxan in August 2016. During follow-up there has been progression of pulmonary infiltrates on her follow-up CT scans, but thus far there has been no documented recurrence of the lymphoma. She remains on observation/expectant management. She will be scheduled for a follow-up visit in 3 months. 2. On 02/28/2019 she underwent right thoracoscopy with right upper lobe biopsy on 02/28/2019. Pathology showed diffuse/extensive granulomatous inflammation. Stains for microorganisms were negative, and there was no evidence for malignancy. A subsequent high resolution chest CT revealed reticular opacities involving the upper lobes bilaterally. She also was found to have hypogammaglobulinemia. 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 She was recommended to begin replacement IVIG, which she declined. As such, she is being followed expectantly. 3. She has chronic abdominal pain and constipation. She had previously been under the care of a library media assistant and diagnosed with ulcerative colitis. She is in need of follow-up with a library media assistant, but arranging that has been problematic, as we do not have one available locally. At least for now she will continue with her current bowel regimen. She will be given a prescription for pantoprazole for her GERD symptoms. Signed By: Srinivas Yadav M.D. <<Signature on File>>
== END 2020-06-21 15:05 | disposition home or self-care (01) ==
LOC: ONCMED 15:05
PROVIDERS: PCP Family Medicine; Visit Provider Internal Medicine Medical Oncology
DX: Z08 Encounter for follow-up examination after completed treatment for malignant neoplasm (principal); Z85.72 Personal history of non-Hodgkin lymphomas; D80.1 Nonfamilial hypogammaglobulinemia; J84.89 Other specified interstitial pulmonary diseases; K51.90 Ulcerative colitis, unspecified, without complications; K21.9 Gastro-esophageal reflux disease without esophagitis; K59.00 Constipation, unspecified
CPT/HCPCS: 80053; 99214

== ENCOUNTER 2020-08-30 12:37 | Outpatient (CLI) | payer MEDICAID, SELFPAY ==
[2020-08-30 14:05] LABS: Basophils # 0.1 10^3/uL (0.0-0.1); Basophils % 0.8 %; Eosinophils # 0.3 10^3/uL (0.0-0.8); Eosinophils % 3.7 %; Hematocrit 40.6 % (37.0-47.0); Hemoglobin 13.7 g/dL (11.5-15.3); Lymphocytes # 1.2 10^3/uL (0.8-4.8); Lymphocytes % 14.5 %; Mean Corpuscular HGB Conc 33.7 g/dL (30.0-36.0); Mean Corpuscular Hemoglobin 31.1 pg (28.0-34.0); Mean Corpuscular Volume 92.1 fL (81-99); Mean Platelet Volume 9.6 fL (7.4-10.4); Monocytes # 0.6 10^3/uL (0.2-0.9); Monocytes % 7.3 %; Neutrophils # 5.84 10^3/uL (1.8-7.7); Neutrophils % 73.4 %; Nucleated Red Blood Cells % 0 %; Platelet Count 269 10^3/cmm (130-400); Red Blood Count 4.41 10^6/uL (4.1-5.3); Red Cell Distribution Width 11.3 % (12.1-15.1); White Blood Count 7.9 10^3/uL (4.0-10.0)
[2020-08-30 14:16] LABS: Alanine Aminotransferase 16 U/L (0-33); Albumin Level 4.6 g/dL (3.5-5.2); Alkaline Phosphatase 95 IU/L (35-105); Anion Gap 14.1 (5-19); Aspartate Amino Transferase 22 U/L (0-32); Blood Urea Nitrogen 13 mg/dL (6-20); Calcium 9.4 mg/dL (8.5-10.5); Carbon Dioxide 24 mmol/L (22-29); Chloride 101 mmol/L (98-107); Globulin 2.3 g/dL (1.3-4.6); Glomerular Filtration Rate 74.7 mL/min (90-130); Glucose 99 mg/dL (65-115); Immunoglobulin IGA 50 mg/dL (70-400); Immunoglobulin IGG 555 mg/dL (700-1600); Immunoglobulin IGM 25 mg/dL (40-230); Lactate Dehydrogenase 219 U/L (135-214); Osmolality Calculated 280 mOsm/kg (285-295); Potassium 4.1 mmol/L (3.5-5.1); Sodium 135 mmol/L (136-145); Total Bilirubin 0.3 mg/dL (0.15-1.2); Total Protein 6.9 g/dL (6.6-8.7)
[2020-08-30 16:54] LABS: Erythrocyte Sedimentation Rate 15 mm/hr (0-15)
--- NOTE | 2020-09-11 15:29 | ONC FU_ITS ---
[facility] Patient Note Patient: Hortencia Sheldon Unit #: [id number]: 1965 Dictated By: Matt VillasenorDate of Visit: August 30, 2020 Onc MED Follow-Up/Prog Note Chief Complaint: Lymphoma/interstitial lung disease. History of Present Illness: Mrs Sheldon is a 55 year-old woman with extranodal marginal zone lymphoma. 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 She had stage III disease. She had complete response to treatment with 6 cycles of R-CHOP chemotherapy, which she completed in 2000. In October 2013 she was found on [address] scan to have multiple pulmonary nodules in the left upper lobe/lingula. She underwent bronchoscopy in October 2013 and in December 2013, with inconclusive biopsies on both occasions. She then underwent a VATS procedure in January 2014. Pathology at that time was reviewed at [facility] with the diagnosis of extranodal marginal zone lymphoma. She was then given further chemotherapy with bendamustine/Rituxan. As of September 2014 she had completed 6 cycles of treatment. She did have good response by follow-up CT scan, and she then began maintenance Rituxan at 2 month intervals. During subsequent follow-up, she was found on CT scan to have new groundglass airspace disease in the left lower lobe. At that point she was seen for second opinion evaluation at [facility]. It was recommended that she just continue her maintenance Rituxan. Her follow-up CT scans of the chest, abdomen, and pelvis on 02/12/2016 showed near complete resolution of the groundglass and airspace opacity in the lateral aspect of the left lower lobe, but with new groundglass and linear airspace opacity in the lateral aspect of the right lower lobe compared to previous study from June 2015. She was seen here in June 2016 because she desired to continue her care closer to home. She returned here on 08/26/2016 for her final infusion of maintenance Rituxan. She tolerated it well. Restaging CT scans of the chest, abdomen, and pelvis on 11/20/2016 showed stable groundglass infiltrates and parenchymal scarring in the left upper lobe, unchanged from previous studies. There were slightly more progressed tree in bud infiltrates within the right middle lobe. There was no mediastinal or hilar adenopathy noted and there was no evidence of disease progression in the abdomen or pelvis. She then continued on observation/expectant management. Her surveillance CT scans of the chest, abdomen, and pelvis on 09/11/2017 showed extensive progression of reticular nodular airspace disease throughout both lungs, greatest in the upper lobes. There was no lymphadenopathy noted in the chest, abdomen, or pelvis. She was treated empirically with a 14 day course of Levaquin and fluconazole. Repeat CT scan of the chest on 11/02/2017 showed no improvement in the nodular and reticular nodular airspace disease throughout both lungs. Arrangements were then made for pulmonary consultation with in [place]. She underwent bronchoscopy with transbronchial lung biopsies on 12/15/2017. Pathology showed multiple noncaseating granulomas, suspicious for sarcoid. It was sent to [facility] for review, and there was no evidence of lymphoma or other malignancy. She had a follow-up visit with Dr. Sheldon on 12/23/2017. Given the findings on the transbronchial lung biopsies, she was given a 6-week course of steroid therapy. Restaging CT scans of the chest, abdomen, and pelvis on 05/28/2018 showed chronic changes of fibrosis, atelectasis, and interstitial lung disease throughout the lungs, but with no significant progression of disease. There was no adenopathy or other evidence of recurrent lymphoma. She continued observation/expectant management. Repeat chest CT on 01/04/2019 showed significant progression of bilateral upper lobe and to a lesser extent bilateral lower lobe and right middle lobe reticulonodular interstitial lung disease. There was no evidence of lymphadenopathy. With those findings she was referred to Dr. Patel. On 02/28/2019 she underwent right thoracoscopy with biopsy of the right upper lobe. Pathology showed diffuse/extensive granulomatous and chronic inflammation. There was no evidence of malignancy. The stains for microorganisms were negative. She was then referred to Dr. 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 Her high resolution CT of the chest showed reticular opacities involving predominantly the upper lobes bilaterally. There was also evidence of bronchiectasis. Her hypersensitivity pneumonitis panel was negative. She was confirmed to have low serum immunoglobulin levels with IgG 584 mg/dL, IgA <50 mg/dL, and IgM 25 mg/dL. Her medical history is otherwise significant for ulcerative colitis, GERD, and chronic insomnia. She has a history of smoking 1 pack of cigarettes daily, but only for 7 years. She quit smoking at age 29. INTERIM HISTORY: I had seen her for a visit on 10/10/2019, as she had been recommended to begin monthly replacement IVIG. Her treatment, though, had to be postponed due to having potential contact with a COVID-19 patient and having 14 days of quarantine, and ultimately she opted not to start the IVIG. Repeat chest CT on 02/07/2020 showed moderately severe interstitial thickening in the left upper lobe and mild changes in the right upper lobe. There was very mild interval improvement compared to the December 2018 study. There was an area of increasing fibrosis and atelectasis in the posterior left upper lobe. There was no pleural effusion. Small mediastinal and hilar lymph nodes measured up to 9 mm. There was no pathologic adenopathy. She continued observation/symptomatic management. Mrs. Sheldon is here today for an unscheduled visit. She called in with concerns of sores/rash on her arms and neck. She states that the sores have been there for 2 to 3 weeks. They have been somewhat itchy at times but were not blistery or pustules. They are scattered and no particular formation and she has no idea of a particular cause. She states she has not been working in regard. It does not appear to be poison seda either. She has had no exposure to any new pets. She denies any new use of hygiene products such as soap, lotion, laundry detergents/fabric softener or perfumes. She denies any mass or adenopathy associated with the lesions. She denies any fever or chills. She states her energy is fair. She denies any new pain. She has ongoing abdominal pain with her ulcerative colitis with intermittent constipation. She states her acid reflux has done better with [id number] medication and does not seem to a problem currently. She denies any night sweats. She has had no particular increase in fatigue. She has had no noted unplanned weight loss. Her ECOG is 1. Past Medical History: Chronic insomnia Gastroesophageal reflux disease MALT lymphoma Ulcerative colitis in 2006 Past Surgical History: section in 1986, in 1993, and in 1996 Lung biopsy in 2013 Lung biopsy in 2000 Open reduction/fixation of left forearm fracture in 2000 Allergies: No Known Allergies. Medications: DiazePAM (10 mg) Tablet Oral Take as Directed Diclofenac Sodium 1 (75 mg) Tablet, enteric coated Oral b.i.d. DULoxetine HCl 1 (60 mg) Capsule Delayed Release Particles Oral b.i.d. Pantoprazole Sodium 1 (40 mg) Tablet, enteric coated Oral daily TraZODone HCl 1 (150 mg) Tablet Oral at bedtime Family History: Ms. Sheldon's mother is alive. Ms. Sheldon's father is alive. Ms. Sheldon has 1 brother who is alive. She has 1 sister who is alive. Both parents are still living, father at age 81 and mother at age 78. Her mother is been treated for colonic polyps. Her maternal grandmother had colon cancer. Her great-grandmother of Hodgkin's lymphoma. Social History: Ms. Sheldon is and she is a [employer]. Ms. Sheldon quit smoking 22 years ago but had smoked 1.0 pack/day for 7 years. She has no history of drinking. Ms. Sheldon reports the following support systems: lives with spouse, significant other, family, or friends, lives in own house, supportive family/friends willing to assist with needs, and adequate transportation available for expected visits. Her diet consists of regular meals. She indicates her activity level as: daily activities. She has a history of smoking 1 pack of cigarettes daily for 7 years. She quit at age 29. She does not drink alcohol. Review Of Symptoms: <See Above> Vital Signs: Performed on August 30, 2020 14:17 Height - 63.00 in Weight - 151.0 lbs (LOW) BSA - 1.72 sq.m BMI - 26.75 Temperature - 97.5 F (LOW) Pulse - 86 /min Respiration - 18 /min BP - 115/77 mm(hg) O2 Sat - 98 % Pain - 0,1 - No physically strenuous activity, but ambulatory and able to carry out light or sedentary work (e.g. office work, light house work). (ECOG) Physical Examination: Constitutional Alert, oriented, no acute distress. Skin pink, warm and dry. Head Normocephalic; atraumatic. Eyes Conjunctivae and sclerae are clear and without icterus. Pupils are reactive and equal. Neck Supple without masses or thyromegaly. No jugular venous distension. Hematologic/Lymphatic No petechiae or purpura. No tender or palpable lymph nodes in the cervical or supraclavicular area. Respiratory Lungs are raspy bilaterally to auscultation with slight rhonchi but no wheezing. Cardiovascular Regular rate and rhythm of heart without murmurs,clicks, gallops or rubs. Abdomen Non-tender, non-distended, no masses, ascites .Good bowel sounds noted in all quads. No guarding or rebound tenderness. Back/Spine Non-tender to palpation. Extremities No visible deformities, no cyanosis, clubbing or edema. Musculoskeletal No tenderness or swelling, normal range of motion without obvious weakness. Integumentary Scattered, subcentimeter, mildly erythemic slightly scabbed lesions on arms lower legs neck and upper chest wall. There are no vesicles, no pustules and no exudate. There is noted to be scratch villarreal associated with several of these lesions. Neurologic No sensory or motor deficits, normal cerebellar function, normal gait. Psychiatric Alert and oriented times three. Coherent speech. Verbalizes understanding of our discussions today. Laboratory:Test performed on August 30, 2020 12:55 LDH (Total) 219 U/L Sodium 135 mmol/L Potassium 4.1 mmol/L Chloride 101 mmol/L CO2 24 mmol/L Anion Gap 14.1 BUN 13 mg/dL Creatinine 0.8 mg/dL Cr Clearance (Est) 91.6500 mL/min eGFR 74.7 mL/min Glucose 99 mg/dL Osmolality - Calculated 280 mOsm/kg Calcium 9.4 mg/dL Protein, Total 6.9 g/dL Albumin 4.6 g/dL Globulin 2.3 g/dL Bilirubin, Total 0.3 mg/dL ALT (SGPT) 16 U/L AST (SGOT) 22 U/L Alkaline Phosphatase 95 IU/L ESR (Sed Rate) 15 mm/hr WBC 7.9 10 3/uL RBC 4.41 10 6/uL HGB 13.7 g/dL HCT 40.6 % MCV 92.1 fL MCH 31.1 pg MCHC 33.7 g/dL RDW 11.3 % Platelet Count 269 10 3/cmm MPV 9.6 fL Neutrophils 5.84 10 3/uL Lymphocytes 1.2 10 3/uL Monocytes 0.6 10 3/uL Eosinophils 0.3 10 3/uL Basophils 0.1 10 3/uL Neutrophil % 73.4 % Lymphocyte % 14.5 % Monocyte % 7.3 % Eosinophil % 3.7 % Basophils % 0.8 % NRBC % 0 % IgG 555 mg/dL IgA 50 mg/dL IgM 25 mg/dL Test performed on Mar 07, 2020 16:32 Ua Color NO SPECIMEN Ua Appearance NO SPECIMEN Ua Glucose NO SPECIMEN Ua Bilirubin NO SPECIMEN Ua Ketones NO SPECIMEN Ua Blood NO SPECIMEN Ua Protein NO SPECIMEN Ua Nitrites NO SPECIMEN Ua Leukocyte Esterase NO SPECIMEN Impression: 1. Low-grade B cell lymphoma, stage III at initial diagnosis in 2000. She had a 13-year remission following treatment with R-CHOP chemotherapy. 2. She was then found to have extranodal marginal zone lymphoma with biopsy proven involvement in the left lung in March 2014. She had a good response to treatment with 6 cycles of bendamustine/Rituxan, completed in September 2014. She completed 2 years of maintenance Rituxan in August 2016. 3. During follow-up she had CT evidence of progressive pulmonary infiltrates. Her transbronchial biopsy in November 2017 showed noncaseating granulomas, suspicious for sarcoid. She had no response to steroid therapy. 4. She underwent right thoracoscopy with right upper lobe biopsy on 02/28/2019. Pathology showed diffuse/extensive granulomatous inflammation. Stains for microorganisms were negative, and there was no evidence for malignancy. 5. High resolution chest CT revealed reticular opacities involving the upper lobes bilaterally. She also was found to have hypogammaglobulinemia. 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 6. She has had chronic cough, and there also was evidence of bronchiectasis on the high-resolution chest CT. 7. Ulcerative colitis. 8. GERD. 9. Degenerative arthritis. 10. She has chronic insomnia. I had seen her in September 2019 and at that time she was recommended to begin monthly replacement IVIG. However, the treatment was postponed, as she had potential contact with a COVID-19 patient and she required 14 days of quarantine. In the meantime, she ultimately decided against starting the IVIG. She has remained on observation/symptomatic management. Her repeat chest CT on 02/07/2020 actually showed mild improvement compared to the December 2018 study. She continues to have some shortness of breath and productive cough. Her most significant complaint, though, has been worsening abdominal pain and constipation, which she attributes to ulcerative colitis. Plan/Problems Addressed at this Visit: 1. Patient with low-grade B cell lymphoma, stage III at initial diagnosis in 2000. She had a 13-year remission following treatment with R-CHOP chemotherapy. In March 2014 she was found to have extranodal marginal zone lymphoma with biopsy proven involvement in the left lung. She had a good response to treatment with 6 cycles of bendamustine/Rituxan, completed in September 2014. She completed 2 years of maintenance Rituxan in August 2016. During follow-up there has been progression of pulmonary infiltrates on her follow-up CT scans, but thus far there has been no documented recurrence of the lymphoma. She remains on observation/expectant management. She will keep her scheduled for a follow-up visit for 3 months from her last followup. 2. On 02/28/2019 she underwent right thoracoscopy with right upper lobe biopsy on 02/28/2019. Pathology showed diffuse/extensive granulomatous inflammation. Stains for microorganisms were negative, and there was no evidence for malignancy. A subsequent high resolution chest CT revealed reticular opacities involving the upper lobes bilaterally. She also was found to have hypogammaglobulinemia. 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 She was recommended to begin replacement IVIG, which she declined. As such, she is being followed expectantly. 3. She has chronic abdominal pain and constipation. She had previously been under the care of a secretarial teacher and diagnosed with ulcerative colitis. She is in need of follow-up with a secretarial teacher, but arranging that has been problematic, as we do not have one available locally. At least for now she will continue with her current bowel regimen. She is on pantoprazole for her GERD symptoms. She states this is working well. She has finally agreed to see Dr. Bear for GI work-up but she cannot make the trip to [place]. She has transportation issues. Will make referral to Dr. Bear for her abdominal pain and constipation/ulcerative colitis. 4. Dermatitis???acute A. We will have her try CeraVe cream antiitch. B. She can try cortisone [id number] and Benadryl cream as needed for itching if these CeraVe cream does not work. C. Dr. Yadav nor I felt she needed antibiotics at this time. If the rash worsens or seems to be pustular then she may benefit from antibiotics at that time. D. Mrs. Sheldon was instructed to contact us in the interim should questions or problems arise. E. We did review her labs for today which include a CBC???WBC 7.9, hemoglobin 13.9, platelets 269,000 ANC is 5000 140. Sodium 135 potassium 4.1 creatinine 0.8 [place] was 99 her LFTs are normal. A copy of the lab was given to her. Total time spent with Ms. Sheldon's care today including Dr. Yadav's assessment and recommendations for plan of care, discussing plan of care and discussing side effect identification and management as well as answering questions and post visit documentation was 40 minutes. Signed By: Matt Villasenor-, [facility] Srinivas Yadav MD <<Signature on File>>
== END 2020-08-30 12:38 | disposition home or self-care (01) ==
PROVIDERS: Internal Medicine Medical Oncology; PCP Family Medicine; Visit Provider Nurse Practitioner
DX: Z08 Encounter for follow-up examination after completed treatment for malignant neoplasm (principal); Z85.72 Personal history of non-Hodgkin lymphomas; D80.1 Nonfamilial hypogammaglobulinemia; D84.9 Immunodeficiency, unspecified; K51.90 Ulcerative colitis, unspecified, without complications; K21.9 Gastro-esophageal reflux disease without esophagitis; M19.90 Unspecified osteoarthritis, unspecified site; F51.04 Psychophysiologic insomnia; Z79.899 Other long term (current) drug therapy
CPT/HCPCS: 36415; 80053; 82784; 83615; 85025; 85651; 99215

== ENCOUNTER 2020-10-03 14:26 | Outpatient (CLI) | payer MEDICAID, SELFPAY ==
[2020-10-03 15:02] LABS: Basophils # 0.1 10^3/uL (0.0-0.1); Basophils % 0.6 %; Eosinophils # 0.3 10^3/uL (0.0-0.8); Eosinophils % 2.5 %; Hematocrit 40.8 % (37.0-47.0); Hemoglobin 13.9 g/dL (11.5-15.3); Lymphocytes # 1.7 10^3/uL (0.8-4.8); Lymphocytes % 16.1 %; Mean Corpuscular HGB Conc 34.1 g/dL (30.0-36.0); Mean Corpuscular Hemoglobin 30.8 pg (28.0-34.0); Mean Corpuscular Volume 90.3 fL (81-99); Mean Platelet Volume 9.1 fL (7.4-10.4); Monocytes # 0.8 10^3/uL (0.2-0.9); Neutrophils # 7.55 10^3/uL (1.8-7.7); Neutrophils % 72.2 %; Nucleated Red Blood Cells % 0 %; Platelet Count 300 10^3/cmm (130-400); Red Blood Count 4.52 10^6/uL (4.1-5.3); White Blood Count 10.5 10^3/uL (4.0-10.0)
[2020-10-03 15:13] LABS: Alanine Aminotransferase 13 U/L (0-33); Albumin Level 4.3 g/dL (3.5-5.2); Alkaline Phosphatase 120 IU/L (35-105); Anion Gap 15.4 (5-19); Aspartate Amino Transferase 17 U/L (0-32); Blood Urea Nitrogen 11 mg/dL (6-20); Calcium 9.4 mg/dL (8.5-10.5); Carbon Dioxide 27 mmol/L (22-29); Chloride 99 mmol/L (98-107); Globulin 2.4 g/dL (1.3-4.6); Glomerular Filtration Rate 51.8 mL/min (90-130); Glucose 85 mg/dL (65-115); Immunoglobulin IGG 567 mg/dL (700-1600); Immunoglobulin IGM 25 mg/dL (40-230); Lactate Dehydrogenase 188 U/L (135-214); Osmolality Calculated 283 mOsm/kg (285-295); Potassium 4.4 mmol/L (3.5-5.1); Sodium 137 mmol/L (136-145); Total Bilirubin 0.3 mg/dL (0.15-1.2); Total Protein 6.7 g/dL (6.6-8.7)
[2020-10-03 15:42] LABS: Immunoglobulin IGA < 50 mg/dL (70-400)
[2020-10-03 16:39] LABS: Erythrocyte Sedimentation Rate 35 mm/hr (0-15)
--- NOTE | 2020-10-07 14:04 | ONC FU_ITS ---
Dr. Yadav Patient Follow-Up Note Patient: Hortencia Sheldon Unit #: [id number]: 1965 Dicatated By: Srinivas Yadav M.D.Date of Visit:Oct 03, 2020 Onc Med Follow-up/Prog Note Chief Complaint: Lymphoma/interstitial lung disease. History of Present Illness: This is a 54 year-old woman with extranodal marginal zone lymphoma. 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 She had stage III disease. She had complete response to treatment with 6 cycles of R-CHOP chemotherapy, which she completed in 2000. In October 2013 she was found on [address] scan to have multiple pulmonary nodules in the left upper lobe/lingula. She underwent bronchoscopy in October 2013 and in December 2013, with inconclusive biopsies on both occasions. She then underwent a VATS procedure in January 2014. Pathology at that time was reviewed at [facility] with the diagnosis of extranodal marginal zone lymphoma. She was then given further chemotherapy with bendamustine/Rituxan. As of September 2014 she had completed 6 cycles of treatment. She did have good response by follow-up CT scan, and she then began maintenance Rituxan at 2 month intervals. During subsequent follow-up, she was found on CT scan to have new groundglass airspace disease in the left lower lobe. At that point she was seen for second opinion evaluation at [facility]. It was recommended that she just continue her maintenance Rituxan. Her follow-up CT scans of the chest, abdomen, and pelvis on 02/12/2016 showed near complete resolution of the groundglass and airspace opacity in the lateral aspect of the left lower lobe, but with new groundglass and linear airspace opacity in the lateral aspect of the right lower lobe compared to previous study from June 2015. She was seen here in June 2016 because she desired to continue her care closer to home. She returned here on 08/26/2016 for her final infusion of maintenance Rituxan. She tolerated it well. Restaging CT scans of the chest, abdomen, and pelvis on 11/20/2016 showed stable groundglass infiltrates and parenchymal scarring in the left upper lobe, unchanged from previous studies. There were slightly more progressed tree in bud infiltrates within the right mddle lobe. There was no mediastinal or hilar adenopathy noted and there was no evidence of disease progression in the abdomen or pelvis. She then continued on observation/expectant management. Her surveillance CT scans of the chest, abdomen, and pelvis on 09/11/2017 showed extensive progression of reticular nodular airspace disease throughout both lungs, greatest in the upper lobes. There was no lymphadenopathy noted in the chest, abdomen, or pelvis. She was treated empirically with a 14 day course of Levaquin and fluconazole. Repeat CT scan of the chest on 11/02/2017 showed no improvement in the nodular and reticular nodular airspace disease throughout both lungs. Arrangements were then made for pulmonary consultation with in [place]. She underwent bronchoscopy with transbronchial lung biopsies on 12/15/2017. Pathology showed multiple noncaseating granulomas, suspicious for sarcoid. It was sent to [facility] for review, and there was no evidence of lymphoma or other malignancy. She had a follow-up visit with Dr. Sheldon on 12/23/2017. Given the findings on the transbronchial lung biopsies, she was given a 6-week course of steroid therapy. Restaging CT scans of the chest, abdomen, and pelvis on 05/28/2018 showed chronic changes of fibrosis, atelectasis, and interstitial lung disease throughout the lungs, but with no significant progression of disease. There was no adenopathy or other evidence of recurrent lymphoma. She continued observation/expectant management. Repeat chest CT on 01/04/2019 showed significant progression of bilateral upper lobe and to a lesser extent bilateral lower lobe and right middle lobe reticulonodular interstitial lung disease. There was no evidence of lymphadenopathy. With those findings she was referred to Dr. Patel. On 02/28/2019 she underwent right thoracoscopy with biopsy of the right upper lobe. Pathology showed diffuse/extensive granulomatous and chronic inflammation. There was no evidence of malignancy. The stains for microorganisms were negative. She was then referred to Dr. 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 Her high resolution CT of the chest showed reticular opacities involving predominantly the upper lobes bilaterally. There was also evidence of bronchiectasis. Her hypersensitivity pneumonitis panel was negative. She was confirmed to have low serum immunoglobulin levels with IgG 584 mg/dL, IgA <50 mg/dL, and IgM 25 mg/dL. Her medical history is otherwise significant for ulcerative colitis, GERD, and chronic insomnia. She has a history of smoking 1 pack of cigarettes daily, but only for 7 years. She quit smoking at age 29. INTERIM HISTORY: I had seen her for a visit on 10/10/2019, as she had been recommended to begin monthly replacement IVIG. Her treatment, though, had to be postponed due to having potential contact with a COVID-19 patient and having 14 days of quarantine, and ultimately she opted not to start the IVIG. Repeat chest CT on 02/07/2020 showed moderately severe interstitial thickening in the left upper lobe and mild changes in the right upper lobe. There was very mild interval improvement compared to the December 2018 study. There was an area of increasing fibrosis and atelectasis in the posterior left upper lobe. There was no pleural effusion. Small mediastinal and hilar lymph nodes measured up to 9 mm. There was no pathologic adenopathy. She continued observation/symptomatic management. She is seen for a follow-up visit. She has been feeling pretty good generally. Her main complaint is that she has been having pain in the mid back area to the right of the midline. She says it feels like a muscle squeezing. Her energy, though, has been okay. She is active. ECOG score is 1. Her appetite is not good, but her weight is stable. She has not had fever. She does have some hot flashes and sweating. She says her breathing has been good. She sometimes has cough at night. She occasionally has pain in the substernal area. She also occasionally has nausea. She has acid reflux and she has ongoing problems with constipation. Her bowels move at least every 3 days, though. She has not been aware of any blood in the stool. Bladder function has been okay. She has arthritis pain and she continues to have pain in her tailbone area. She does not complain of headache or dizziness, and she has no focal neurologic symptoms. Medications: DiazePAM (10 mg) Tablet Oral Take as Directed, Diclofenac Sodium 1 (75 mg) Tablet, enteric coated Oral b.i.d., DULoxetine HCl 1 (60 mg) Capsule Delayed Release Particles Oral b.i.d., Pantoprazole Sodium 1 (40 mg) Tablet, enteric coated Oral daily, TraZODone HCl 1 (150 mg) Tablet Oral at bedtime Allergies: No Known Allergies. Vital Signs: Performed on Oct 03, 2020 16:11 Height - 63.00 in Weight - 150.4 lbs (LOW) BSA - 1.71 sq.m BMI - 26.64 Temperature - 97.1 F (LOW) Pulse - 89 /min Respiration - 18 /min BP - 101/71 mm(hg) O2 Sat - 98 % Pain - 0 Fatigue - 0 Physical Examination: Constitutional - She looks pretty good generally, Eyes - Sclerae nonicteric. Conjunctivae clear, ENMT - No lesions noted in the oral cavity, Hematologic/Lymphatic - No cervical, clavicular, or axillary adenopathy, Respiratory - Lungs sound clear with good air movement bilaterally, Cardiovascular - Heart rhythm is regular. There is no murmur, gallop or rub noted, Abdomen - Soft. Liver and spleen are not enlarged. There is no abdominal mass or ascites noted and there is no inguinal adenopathy, Extremities - No edema, Neurologic - No focal neurologic deficits noted. Lab/Imaging: Test performed on Oct 03, 2020 14:33 LDH (Total) 188 U/L Sodium 137 mmol/L Potassium 4.4 mmol/L Chloride 99 mmol/L CO2 27 mmol/L Anion Gap 15.4 BUN 11 mg/dL Creatinine 1.1 mg/dL Cr Clearance (Est) 66.6500 mL/min eGFR 51.8 mL/min Glucose 85 mg/dL Osmolality - Calculated 283 mOsm/kg Calcium 9.4 mg/dL Protein, Total 6.7 g/dL Albumin 4.3 g/dL Globulin 2.4 g/dL Bilirubin, Total 0.3 mg/dL ALT (SGPT) 13 U/L AST (SGOT) 17 U/L Alkaline Phosphatase 120 IU/L ESR (Sed Rate) 35 mm/hr WBC 10.5 10 3/uL RBC 4.52 10 6/uL HGB 13.9 g/dL HCT 40.8 % MCV 90.3 fL MCH 30.8 pg MCHC 34.1 g/dL RDW 11.0 % Platelet Count 300 10 3/cmm MPV 9.1 fL Neutrophils 7.55 10 3/uL Lymphocytes 1.7 10 3/uL Monocytes 0.8 10 3/uL Eosinophils 0.3 10 3/uL Basophils 0.1 10 3/uL Neutrophil % 72.2 % Lymphocyte % 16.1 % Monocyte % 8.0 % Eosinophil % 2.5 % Basophils % 0.6 % NRBC % 0 % IgG 567 mg/dL IgA < 50 mg/dL IgM 25 mg/dL Problem List: 1. Low-grade B cell lymphoma, stage III at initial diagnosis in 2000. She had a 13-year remission following treatment with R-CHOP chemotherapy. 2. She was then found to have extranodal marginal zone lymphoma with biopsy proven involvement in the left lung in March 2014. She had a good response to treatment with 6 cycles of bendamustine/Rituxan, completed in September 2014. She completed 2 years of maintenance Rituxan in August 2016. 3. During follow-up she had CT evidence of progressive pulmonary infiltrates. Her transbronchial biopsy in November 2017 showed noncaseating granulomas, suspicious for sarcoid. She had no response to steroid therapy. 4. She underwent right thoracoscopy with right upper lobe biopsy on 02/28/2019. Pathology showed diffuse/extensive granulomatous inflammation. Stains for microorganisms were negative, and there was no evidence for malignancy. 5. High resolution chest CT revealed reticular opacities involving the upper lobes bilaterally. She also was found to have hypogammaglobulinemia. 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 6. She has had chronic cough, and there also was evidence of bronchiectasis on the high-resolution chest CT. 7. Ulcerative colitis. 8. GERD. 9. Degenerative arthritis. 10. She has chronic insomnia. I had seen her in September 2019 and at that time she was recommended to begin monthly replacement IVIG. However, the treatment was postponed, as she had potential contact with a COVID-19 patient and she required 14 days of quarantine. In the meantime, she ultimately decided against starting the IVIG. She has remained on observation/symptomatic management. Her repeat chest CT on 02/07/2020 actually showed mild improvement compared to the December 2018 study. She continues to have some shortness of breath and productive cough. Her most significant complaint, though, has been worsening abdominal pain and constipation, which she attributes to ulcerative colitis. Problems Addressed with this Encounter and Plan: 1. Patient with low-grade B cell lymphoma, stage III at initial diagnosis in 2000. She had a 13-year remission following treatment with R-CHOP chemotherapy. In March 2014 she was found to have extranodal marginal zone lymphoma with biopsy proven involvement in the left lung. She had a good response to treatment with 6 cycles of bendamustine/Rituxan, completed in September 2014. She completed 2 years of maintenance Rituxan in August 2016. During follow-up there has been progression of pulmonary infiltrates on her follow-up CT scans, but thus far there has been no documented recurrence of the lymphoma. She remains on observation/expectant management. She will be scheduled for a follow-up visit in 4 months. She will have restaging CT scans prior to that visit. 2. On 02/28/2019 she underwent right thoracoscopy with right upper lobe biopsy on 02/28/2019. Pathology showed diffuse/extensive granulomatous inflammation. Stains for microorganisms were negative, and there was no evidence for malignancy. A subsequent high resolution chest CT revealed reticular opacities involving the upper lobes bilaterally. She also was found to have hypogammaglobulinemia. 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 She was recommended to begin replacement IVIG, which she declined. As such, she has been followed expectantly. On her current laboratory studies, her quantitative immunoglobulin levels remain significantly decreased. As she is otherwise not symptomatic with it, she will continue expectant management. Signed By: Srinivas Yadav M.D. <<Signature on File>>
== END 2020-10-03 14:27 | disposition home or self-care (01) ==
PROVIDERS: PCP Family Medicine; Visit Provider Internal Medicine Medical Oncology
DX: Z08 Encounter for follow-up examination after completed treatment for malignant neoplasm (principal); Z85.72 Personal history of non-Hodgkin lymphomas; J47.9 Bronchiectasis, uncomplicated; K51.90 Ulcerative colitis, unspecified, without complications; K21.9 Gastro-esophageal reflux disease without esophagitis; M19.90 Unspecified osteoarthritis, unspecified site; F51.04 Psychophysiologic insomnia; Z79.899 Other long term (current) drug therapy; Z92.21 Personal history of antineoplastic chemotherapy
CPT/HCPCS: 80053; 82784; 83615; 85025; 85651; 99214

== ENCOUNTER 2021-01-06 14:47 | Emergency (ER) | payer MEDICAID, SELFPAY ==
[2021-01-06 14:59] VITALS: BP 112/72; PULSE 64; RESP 16; TEMP 36.8; O2SAT 98
--- NOTE | 2021-01-06 15:13 | CTR_ITS ---
PROCEDURE INFORMATION: Exam: CT Abdomen And Pelvis With Contrast Exam date and time: 01/06/2021 3:13 PM Age: 55 years old Clinical indication: Abdominal pain; Localized; Prior surgery; Surgery date: 6+ months; Surgery type: C-sect; Patient HX: HX of nhl and uc C/O upper abd pain TECHNIQUE: Imaging protocol: Computed tomography of the abdomen and pelvis with contrast. Total images: 225 Radiation optimization: All CT scans at this facility use at least one of these dose optimization techniques: automated exposure control; mA and/or kV adjustment per patient size (includes targeted exams where dose is matched to clinical indication); or iterative reconstruction. Contrast material: OMNI 300; Contrast volume: 95 ml; Contrast route: INTRAVENOUS (IV); COMPARISON: CT Chest/Abdomen/Pelvis w IV* 05/28/2018 10:59 AM RADIATION DOSE METRICS: Total DLP (mGy-cm): 1283.09 FINDINGS: Lungs: Limited assessment of the lung bases fails to reveal evidence for active cardiopulmonary process. Liver: No visible hepatic mass or cystic structure. Hepatomegaly. Gallbladder and bile ducts: Unremarkable. No calcified stones. No ductal dilation. Pancreas: Pancreas is unremarkable. No visible pancreatic ductal ectasia. Spleen: Tiny splenule. Spleen otherwise unremarkable. Adrenal glands: Adrenal glands unremarkable. Kidneys and ureters: No hydronephrosis or perinephric fluid. No visible nephrolithiasis. Stomach and bowel: Assessment of the hollow viscus fails to reveal evidence of active or acute pathology. Nonobstructed bowel pattern. No visible acute diverticulitis. No visible adynamic or reactive ileus. Appendix: The appendix is visualized and appears noninflamed. Intraperitoneal space: No visible evidence of mesenteric lymphadenitis or active mesenteritis/panniculitis. No visible pneumoperitoneum or intraperitoneal ascites. Vasculature: Portal vein patent. The abdominal aorta is nonaneurysmal. Lymph nodes: No current visible evidence of active mesenteric or retroperitoneal lymphadenopathy. Urinary bladder: Urinary bladder unremarkable. Reproductive: Unremarkable as visualized. Bones/joints: No visible active or acute osseous pathology. Soft tissues: Unremarkable. CT/CT abdomen pelvis w con* [id number] IMPRESSION: Currently no visible evidence for acute abdominal or pelvic pathologic process. Radiation Dose CTDIVOL = (mGy): DLP = 1283.09 (mGy-cm)
--- NOTE | 2021-01-06 15:13 | W.ED.ABDPA2 ---
HPI - Abdominal Pain General: Chief Complaint: Abdominal Pain Stated Complaint: Abdominal & Back Pain Time Seen by Provider: 01/06/21 15:09 History of Present Illness: HPI narrative: This patient is a 55-year-old female who presents to the emergency department with complaint of abdominal pain. Patient believes that she has ulcerative colitis that is flaring up. Patient has had no bowel surgeries. Patient states she has a history of non-Hodgkin's lymphoma that was treated when she was 19 years old and has not had any treatment since. Patient states ever since then she has had issues with colitis. Patient does take tramadol chronically for pain and does have a history of constipation. Patient denies fever nausea vomiting. Will do medical evaluation treat as needed MD elicited complaint: abdominal pain Pertinent past history: constipation Onset (ago): hour(s) Pain Consistency: constant Location: Diffuse Quality: aching Radiation: none Exacerbating factors: nothing Associated Symptoms: Reports constipation; Denies chills, dysuria, fever(s), nausea and vomiting Review of Systems General: Reports: 10 or more systems reviewed and unremarkable except in HPI and below Const: Denies: fever(s), chills, body aches or fatigue Eyes: Denies: change in vision or blurry vision ENMT: Denies: throat pain, hoarseness or mouth pain Card: Denies: chest pain, palpitations, irregular heart rhythm, edema, swelling of feet/ankles or lightheadedness Resp: Denies: dyspnea, productive cough, non-productive cough, wheezing or pain on inspiration GI: Reports: abdominal pain and constipation; Denies: nausea or vomiting : Denies: flank pain, difficulty voiding, dysuria, urinary frequency, urinary urgency or urinary hesitancy Musc: Denies: neck pain, back pain, extremity pain, extremity swelling, joint pain, joint swelling, joint redness, joint warmth or limited range of motion Skin/Breast: Denies: rash, pruritus, erythema or skin tenderness Neuro: Denies: headache(s), numbness in extremities or weakness in extremities Psych: Denies: anxiety or depression PFS ED PFSH: Medical History (Updated 01/06/21 @ 18:06 by Donal Romeo MD) Arthritis delivery delivered Chronic insomnia Cyclothymic disorder GERD (gastroesophageal reflux disease) Lung nodule Lymphoma Post-traumatic stress disorder, chronic Ulcerative colitis Surgical History History of surgery on arm Family History Mother Cancer Grandmother Cancer Hodgkin disease Social History Smoking and tobacco status: former smoker Quit status (tobacco): has quit using tobacco Year quit tobacco: 1999 Alcohol intake: never Lives independently: Yes Household members: spouse Marital status: History of recent travel: No Current gender identity: Female Physical Exam Const: COMMON NORMALS: no acute distress, average body habitus, patient oriented x3, no limitations, healthy appearing, alert and well nourished HENMT: COMMON NORMALS: normocephalic, atraumatic, hearing grossly normal bilaterally, external ears normal, EAC's normal, TM's normal bilaterally, Normal external nose present, Normal nasal mucous membranes and turbinates present, moist oral mucous membranes, oropharynx normal, dentition normal and gingiva normal HEAD & SCALP: normocephalic and atraumatic NOSE: Normal external nose present and Normal nasal mucous membranes and turbinates present EXTERNAL EAR: Yes external ears normal EXTERNAL AUDITORY CANAL: EAC's normal TYMPANIC MEMBRANE: TM's normal bilaterally Neck/C-Spine: COMMON NORMALS: full ROM, no lymphadenopathy, supple, no meningeal signs, no JVD, Thyroid normal and No carotid bruits THYROID: Thyroid normal Chest: COMMONS NORMALS: normal inspection of the chest, normal palpation of entire chest wall, normal inspection of the breasts and normal palpation of the breasts Breast/axilla inspection: Yes normal inspection of the breasts BREAST/AXILLA PALPATION: Yes normal palpation of the breasts Resp: COMMON NORMALS: normal respiratory effort, No retractions, No use of accessory muscles, clear to auscultation bilaterally and percussion normal AUSCULTATION: clear to auscultation bilaterally PERCUSSION: percussion normal Cardio: COMMON NORMALS: no JVD, regular rate, regular rhythm, S1 normal heart sound present, S2 normal heart sound present, No gallops present (Cardio), No clicks present (Cardio), No murmurs present (Cardio), No rub (Cardio) and Peripheral pulses 2+ throughout RATE: regular rate RHYTHM: regular rhythm HEART SOUNDS: S1 normal heart sound present and S2 normal heart sound present PERIPHERAL PULSES: Peripheral pulses 2+ throughout GI: COMMON NORMALS: Normal to inspection, nondistended, normoactive bowel sounds present, Soft to palpation, non-tender, No hepatosplenomegaly present, no masses and no bruits PALPATION: Yes Soft to palpation and Yes No hepatosplenomegaly present Back/Pelvis: COMMON NORMALS: thoracic and lumbar spine normal to inspection, no thoracic nor lumbar tenderness, thoraco-lumbar ROM normal and straight leg raise negative bilaterally Extremity: COMMON NORMALS: normal to inspection, full ROM, capillary refill normal, no joint enlargement, no clubbing, cyanosis or edema, no calf tenderness and no pedal edema Neuro: COMMON NORMALS: patient oriented x3 SENSORIUM/ORIENTATION: Yes alert MENINGEAL SIGNS: Yes no meningeal signs Course Reevaluation(s): Reevaluation #1: Negative evaluation in the emergency department for acute findings. Patient appears to have severe constipation and is chronic in her history. Patient encouraged p.o. fluids. Take medications as prescribed. May mix 4 ounces of prune juice with 2 ounces of milk of magnesia and 2 tablespoons of salted butter. He did a microwave and serve warm. Can do this daily to help with constipation. Patient may also take senna [id number] as a laxative. Follow-up with PCP in 2 to 3 days. Time: 18:05 Vital Signs: Vital signs: Vital Signs Temperature 98.2 F 01/06/21 14:59 Pulse Rate 64 01/06/21 14:59 Respiratory Rate 16 01/06/21 14:59 Blood Pressure 112/72 01/06/21 14:59 Pulse Oximetry 98 01/06/21 14:59 MDM - Abdominal Pain MDM Narrative: Medical decision making narrative: Negative evaluation in the emergency department for acute findings. Patient appears to have severe constipation and is chronic in her history. Patient encouraged p.o. fluids. Take medications as prescribed. May mix 4 ounces of prune juice with 2 ounces of milk of magnesia and 2 tablespoons of salted butter. He did a microwave and serve warm. Can do this daily to help with constipation. Patient may also take senna [id number] as a laxative. Follow-up with PCP in 2 to 3 days. Differential Diagnosis: Differential diagnosis abdominal pain: Likely abdominal pain, acute appendicitis, constipation, diverticulitis, gastroenteritis and small bowel obstruction Medical Records: Attestation: I reviewed the patient's medical records. Lab Data: Attestation: I reviewed the patient's lab results. Labs: Lab Results 01/06/21 01/06/21 01/06/21 Range/Units 15:34 16:04 16:04 WBC 4.6 (4.0-10.0) 10^3/ uL RBC 4.08 L (4.1-5.3) 10^6/u L Hgb 12.3 (11.5-15.3) g/dL Hct 36.6 L (37.0-47.0) % MCV 89.7 (81-99) fl MCH 30.1 (28.0-34.0) pg MCHC 33.6 (30.0-36.0) g/dL RDW 11.5 L (12.1-15.1) % Plt Count 193 (130-400) 10^3/c mm MPV 9.3 (7.4-10.4) fL Neut % (Auto) 58.6 % Lymph % (Auto) 27.4 % [place] % (Auto) 9.4 % Eos % (Auto) 3.7 % Baso % (Auto) 0.9 % Neut # (Auto) 2.67 (1.8-7.7) 10^3/u L Lymph # (Auto) 1.3 (0.8-4.8) 10^3/u L [place] # (Auto) 0.4 (0.2-0.9) 10^3/u L Eos # (Auto) 0.2 (0.0-0.8) 10^3/u L Baso # (Auto) 0.0 (0.0-0.1) 10^3/u L Nucleated RBC % (a uto) 0 % Nucleated RBCs # 0.0 /100WBC Sodium 142 (136-145) mmol/L Potassium 3.8 (3.5-5.1) mmol/L Chloride 106 (98-107) mmol/L Carbon Dioxide 26 (22-29) mmol/L Anion Gap 13.8 (5-19) BUN 7 (6-20) mg/dL Creatinine 0.7 (0.5-0.9) mg/dL GFR Calculation 87.2 L (90-130) mL/min Glucose 89 (65-115) mg/dL Calculated Osmolal ity 291 (285-295) mOsm/k g Calcium 9.6 (8.5-10.5) mg/dL Total Bilirubin 0.2 (0.15-1.2) mg/dL AST 21 (0-32) U/L ALT 14 (0-33) U/L Alkaline Phosphata se 73 (35-105) IU/L Total Protein 6.2 L (6.6-8.7) g/dL Albumin 4.0 (3.5-5.2) g/dL Globulin 2.2 (1.3-4.6) g/dL Lipase 33 (13-60) U/L Urine Color Yellow (Yellow) Urine Appearance Clear (CLEAR) Urine pH 5 (5-7) Ur Specific Gravit y 1.015 (1.005-1.030) Urine Protein Neg (Negative) Urine Glucose (UA) Norm (Normal) Urine Ketones Negative (Negative) Urine Blood Neg (Negative) Urine Nitrate Negative (Negative) Urine Bilirubin Neg (Negative) Urine Urobilinogen Norm (Negative) mg/dL Ur Leukocyte Catrina ase Negative (Negative) Imaging Data ^: CT Abd/Pel: Attestation: I personally reviewed and interpreted this imaging study as follows: Radiologist's impression: Negative for any acute findings. Discharge Plan Discharge Patient Disposition: Home Clinical Impression: Nonspecific abdominal pain, Constipation Condition: Stable Prescriptions: No Action pantoprazole 40 mg tablet,delayed release (DR/EC) 40 mg PO ONCE RF: 0 diazepam 10 mg tablet 10 mg PO .COMPLEX Qty: 45 RF: 2 trazodone 150 mg tablet 150 mg PO .HS Qty: 60 RF: 2 sulfasalazine 500 mg tablet,delayed release (DR/EC) 0.5 g PO BID RF: 0 fluticasone propionate [Flonase Allergy Relief] 50 mcg/actuation spray,suspension 1 spray INTRANASAL Q12H 30 Days Qty: 18.2 RF: 2 duloxetine 60 mg capsule,delayed release(DR/EC) 120 mg PO DAILY 30 Days Qty: 60 RF: 0 Discharge Orders: Discharge ED (Routine); Ordered 01/06/21 Ordered By: Donal Romeo Referrals: Everett Davis MD [Primary Care Provider] - Discharge Diet: Advance as tolerated Discharge Activity: Resume usual activity Patient Instructions: Abdominal Pain (ED), Opioid Safety Activity Restrictions/Additional Instructions: Patient encouraged p.o. fluids. Take medications as prescribed. May mix 4 ounces of prune juice with 2 ounces of milk of magnesia and 2 tablespoons of salted butter. He did a microwave and serve warm. Can do this daily to help with constipation. Patient may also take senna [id number] as a laxative. Follow-up with PCP in 2 to 3 days. Coding Level of Care Code ED Pot Room Supervisor for Chg Fwd Exam Comprehensive
[2021-01-06 15:43] LABS: Add Urine Microscopic? NO; Charge for UA Resulting for Rev
[2021-01-06 15:56] LABS: Bilirubin Urine Neg (Negative); Blood Urine Neg (Negative); Glucose Urine UA Norm (Normal); Ketones Urine Negative (Negative); Leukocyte Esterase Urine Negative (Negative); Nitrate Urine Negative (Negative); Protein Urine Neg (Negative); Specific Gravity, Urine 1.015 (1.005-1.030); Urine Appearance Clear (CLEAR); Urine Color Yellow (Yellow); Urobilinogen Urine Norm (Negative); pH Urine 5 (5-7)
[2021-01-06] MEDS: sodium chloride 0.9% 1,000 ML 999 ML IV (16:10)
[2021-01-06 16:36] LABS: Basophils % 0.9 %; Eosinophils # 0.2 10^3/uL (0.0-0.8); Eosinophils % 3.7 %; Hematocrit 36.6 % (37.0-47.0); Hemoglobin 12.3 g/dL (11.5-15.3); Lymphocytes # 1.3 10^3/uL (0.8-4.8); Lymphocytes % 27.4 %; Mean Corpuscular HGB Conc 33.6 g/dL (30.0-36.0); Mean Corpuscular Hemoglobin 30.1 pg (28.0-34.0); Mean Corpuscular Volume 89.7 fl (81-99); Mean Platelet Volume 9.3 fL (7.4-10.4); Monocytes # 0.4 10^3/uL (0.2-0.9); Monocytes % 9.4 %; Neutrophils # 2.67 10^3/uL (1.8-7.7); Neutrophils % 58.6 %; Nucleated Red Blood Cells % 0 %; Platelet Count 193 10^3/cmm (130-400); Red Blood Count 4.08 10^6/uL (4.1-5.3); Red Cell Distribution Width 11.5 % (12.1-15.1); White Blood Count 4.6 10^3/uL (4.0-10.0)
[2021-01-06 16:47] LABS: Alanine Aminotransferase 14 U/L (0-33); Alkaline Phosphatase 73 IU/L (35-105); Anion Gap 13.8 (5-19); Aspartate Amino Transferase 21 U/L (0-32); Blood Urea Nitrogen 7 mg/dL (6-20); Calcium 9.6 mg/dL (8.5-10.5); Carbon Dioxide 26 mmol/L (22-29); Chloride 106 mmol/L (98-107); Globulin 2.2 g/dL (1.3-4.6); Glomerular Filtration Rate 87.2 mL/min (90-130); Glucose 89 mg/dL (65-115); Lipase 33 U/L (13-60); Osmolality Calculated 291 mOsm/kg (285-295); Potassium 3.8 mmol/L (3.5-5.1); Sodium 142 mmol/L (136-145); Total Bilirubin 0.2 mg/dL (0.15-1.2); Total Protein 6.2 g/dL (6.6-8.7)
[2021-01-06] MEDS: iohexol 300 mg/mL 100 mL Btl IV (17:09)
[2021-01-06 18:24] VITALS: BP 123/64; PULSE 78; RESP 18; O2SAT 98
== END 2021-01-06 18:26 | disposition home or self-care (01) ==
PROVIDERS: Emergency Provider Emergency Medicine; PCP Family Medicine
DX: K59.00 Constipation, unspecified (principal); R10.9 Unspecified abdominal pain; Z85.72 Personal history of non-Hodgkin lymphomas; Z87.891 Personal history of nicotine dependence
CPT/HCPCS: 74177; 80053; 81003; 83690; 85025; 96360; 99283; J7030; Q9967

== ENCOUNTER 2021-03-08 12:47 | Outpatient (CLI) | payer MEDICAID, SELFPAY ==
--- NOTE | 2021-03-08 13:15 | CT_ITS ---
WS: [id number] Exam: CT chest abd pel w con* Date/Time of Exam: 03/08/2021 1:18 PM Reason For Exam: LYMPHOMA DLP: 2084.[address] scans at [facility] use at least one of these dose optimization techniques: automated e xposure control; mA and/or kV adjustment per patient size (includes targeted exams where dose is matc hed to clinical indication); or iterative reconstruction. CT scan of the chest with contrast. Compared to prior exam 05/18/2019 The lungs are fully expanded. Extensive chronic changes of fibrosis and honeycombing in the left uppe r lobe. Associated bronchiectasis. There are also chronic areas of fibrosis in the right upper lobe. Mild bronchiectasis. No suspicious pulmonary mass or nodule. The airway is patent. The thoracic aorta is normal in caliber. The central pulmonary arteries are clear. No hilar or mediastinal lymphadenopa thy. The lungs are hyperinflated with emphysematous change. No axillary or subpectoral lymphadenopath y. Normal thyroid tissue. No destructive bone lesions are chest wall defects. CT/CT chest abd pel w con* IMPRESSION: 1. Extensive chronic changes of the fibrosis and honeycombing and bronchiectasi s seen in the upper lobes. The left is worse in the right. 2. No suspicious pulmonary mass or nodule. No lymphadenopathy in the chest. 3. Pulmonary hyperinflation with emphysematous change. CT scan of the abdomen and pelvis with IV contrast. Compared to the most recent exam 01/06/2021. The liver, gallbladder, spleen and pancreas appear normal. The abdominal aorta is normal in caliber. The stomach is unremarkable. The portal vein and IVC are patent. Unremarkable kidneys and adrenal glands. Small bowel loops are normal i n caliber. Large amount retained stool in the colon. No free air. No lymphadeno karina. No sign of acute appendix. No mass or adenopathy in the pelvis. A small amount of the fluid in the posterior cul-de-sac. The urinary bladder is incompl etely distended but appears to be intact. Tiny fat filled umbilical hernia. No destructive bone lesions. IMPRESSION: 1. No mass, adenopathy or acute process in the abdomen or pelvis. 2. Constipation. Other minor findings as above.
[2021-03-08] MEDS: iodixanol 320 mg/mL 100mL Btl IV (15:45)
[2021-03-08] MEDS: iohexol 300 mg/mL 50 mL Btl PO (15:46)
== END 2021-03-08 12:48 | disposition home or self-care (01) ==
PROVIDERS: PCP Family Medicine; Visit Provider Internal Medicine Medical Oncology
DX: C88.4 Extranodal marginal zone B-cell lymphoma of mucosa-associated lymphoid tissue [MALT-lymphoma] (principal); K59.00 Constipation, unspecified
CPT/HCPCS: 71260; 74177; Q9967

== ENCOUNTER 2021-04-03 09:45 | Outpatient (CLI) | payer MEDICAID, SELFPAY ==
--- NOTE | 2021-04-07 09:22 | ONC FU_ITS ---
Dr. Yadav Patient Follow-Up Note Patient: Hortencia Sheldon Unit #: [id number]: 1965 Dicatated By: Srinivas Yadav M.D.Date of Visit:Apr 03, 2021 Onc Med Follow-up/Prog Note Chief Complaint: Lymphoma/interstitial lung disease. 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 She had stage III disease. She had complete response to treatment with 6 cycles of R-CHOP chemotherapy, which she completed in 2000. In October 2013 she was found on CT scan to have multiple pulmonary nodules in the left upper lobe/lingula. She underwent bronchoscopy in October 2013 and in December 2013, with inconclusive biopsies on both occasions. She then underwent a VATS procedure in January 2014. Pathology at that time was reviewed at [facility] with the diagnosis of extranodal marginal zone lymphoma. She was then given further chemotherapy with bendamustine/Rituxan. As of September 2014 she had completed 6 cycles of treatment. She did have good response by follow-up CT scan, and she then began maintenance Rituxan at 2 month intervals. During subsequent follow-up, she was found on CT scan to have new groundglass airspace disease in the left lower lobe. At that point she was seen for second opinion evaluation at [facility]. It was recommended that she just continue her maintenance Rituxan. Her follow-up CT scans of the chest, abdomen, and pelvis on 02/12/2016 showed near complete resolution of the groundglass and airspace opacity in the lateral aspect of the left lower lobe, but with new groundglass and linear airspace opacity in the lateral aspect of the right lower lobe compared to previous study from June 2015. She was seen here in June 2016 because she desired to continue her care closer to home. She returned here on 08/26/2016 for her final infusion of maintenance Rituxan. She tolerated it well. Restaging CT scans of the chest, abdomen, and pelvis on 11/20/2016 showed stable groundglass infiltrates and parenchymal scarring in the left upper lobe, unchanged from previous studies. There were slightly more progressed tree in bud infiltrates within the right mddle lobe. There was no mediastinal or hilar adenopathy noted and there was no evidence of disease progression in the abdomen or pelvis. She then continued on observation/expectant management. Her surveillance CT scans of the chest, abdomen, and pelvis on 09/11/2017 showed extensive progression of reticular nodular airspace disease throughout both lungs, greatest in the upper lobes. There was no lymphadenopathy noted in the chest, abdomen, or pelvis. She was treated empirically with a 14 day course of Levaquin and fluconazole. Repeat CT scan of the chest on 11/02/2017 showed no improvement in the nodular and reticular nodular airspace disease throughout both lungs. Arrangements were then made for pulmonary consultation with in [place]. She underwent bronchoscopy with transbronchial lung biopsies on 12/15/2017. Pathology showed multiple noncaseating granulomas, suspicious for sarcoid. It was sent to [facility] for review, and there was no evidence of lymphoma or other malignancy. She had a follow-up visit with Dr. Sheldon on 12/23/2017. Given the findings on the transbronchial lung biopsies, she was given a 6-week course of steroid therapy. Restaging CT scans of the chest, abdomen, and pelvis on 05/28/2018 showed chronic changes of fibrosis, atelectasis, and interstitial lung disease throughout the lungs, but with no significant progression of disease. There was no adenopathy or other evidence of recurrent lymphoma. She continued observation/expectant management. Repeat chest CT on 01/04/2019 showed significant progression of bilateral upper lobe and to a lesser extent bilateral lower lobe and right middle lobe reticulonodular interstitial lung disease. There was no evidence of lymphadenopathy. With those findings she was referred to Dr. Patel. On 02/28/2019 she underwent right thoracoscopy with biopsy of the right upper lobe. Pathology showed diffuse/extensive granulomatous and chronic inflammation. There was no evidence of malignancy. The stains for microorganisms were negative. She was then referred to Dr. 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 Her high resolution CT of the chest showed reticular opacities involving predominantly the upper lobes bilaterally. There was also evidence of bronchiectasis. Her hypersensitivity pneumonitis panel was negative. She was confirmed to have low serum immunoglobulin levels with IgG 584 mg/dL, IgA <50 mg/dL, and IgM 25 mg/dL. I had seen her for a visit on 10/10/2019, as she had been recommended to begin monthly replacement IVIG. Her treatment, though, had to be postponed due to having potential contact with a COVID-19 patient and having 14 days of quarantine, and ultimately she opted not to start the IVIG. Repeat chest CT on 02/07/2020 showed moderately severe interstitial thickening in the left upper lobe and mild changes in the right upper lobe. There was very mild interval improvement compared to the December 2018 study. There was an area of increasing fibrosis and atelectasis in the posterior left upper lobe. There was no pleural effusion. Small mediastinal and hilar lymph nodes measured up to 9 mm. There was no pathologic adenopathy. She continued observation/symptomatic management. Her medical history is otherwise significant for ulcerative colitis, GERD, and chronic insomnia. She has a history of smoking 1 pack of cigarettes daily, but only for 7 years. She quit smoking at age 29. INTERIM HISTORY: Restaging CT scans on 03/08/2021 showed extensive chronic changes with fibrosis and honeycombing and bronchiectasis involving the upper lung carpenter bilaterally, left worse than right. There was associated bronchiectasis. There was no suspicious pulmonary mass or nodule identified and there was no lymphadenopathy noted in the chest, abdomen, or pelvis. Overall, there was no evidence of disease progression. She is seen for a follow-up visit. She has been feeling pretty good generally, though she does complain that her energy is still low. She is able to do light work. ECOG score is 1. Her appetite is good. She does not have fever, night sweats, or hot flashes. She has sinus drainage and she recently developed cough. It was initially productive of greenish sputum, but it is now more yellowish. Her breathing, though, has been okay. She does not complain of chest pain. She has had some acid reflux. She has had chronic constipation, but her bowel function lately has been better with regular laxative use. She has no complaints. She has joint pain, especially in the hands and knees. She also helps pain in the back of her legs. She does not complain of headache. She sometimes has dizziness. She has no numbness/paresthesia or other focal neurologic symptoms. Medications: DiazePAM (10 mg) Tablet Oral Take as Directed, Diclofenac Sodium 1 (75 mg) Tablet, enteric coated Oral b.i.d., DULoxetine HCl 1 (60 mg) Capsule Delayed Release Particles Oral b.i.d., Pantoprazole Sodium 1 (40 mg) Tablet, enteric coated Oral daily, TraZODone HCl 1 (150 mg) Tablet Oral at bedtime Allergies: No Known Allergies. Vital Signs: Performed on Apr 03, 2021 11:45 Height - 63.00 in Weight - 151.6 lbs (HIGH) BSA - 1.72 sq.m BMI - 26.85 Temperature - 97.4 F (LOW) Pulse - 104 /min (HIGH) Respiration - 18 /min BP - 124/78 mm(hg) O2 Sat - 97 % Pain - 0 Fatigue - 7 Physical Examination: Constitutional - She looks pretty good generally, Eyes - Sclerae nonicteric. Conjunctivae clear, ENMT - No lesions noted in the oral cavity, Hematologic/Lymphatic - No cervical, clavicular, or axillary adenopathy, Respiratory - Lungs sound clear with good air movement bilaterally, Cardiovascular - Heart rhythm is regular. There is no murmur, gallop or rub noted, Abdomen - Soft. Liver and spleen are not enlarged. There is no abdominal mass or ascites noted and there is no inguinal adenopathy, Extremities - No edema, Neurologic - No focal neurologic deficits noted. Problem List: 1. Low-grade B cell lymphoma, stage III at initial diagnosis in 2000. She had a 13-year remission following treatment with R-CHOP chemotherapy. 2. She was then found to have extranodal marginal zone lymphoma with biopsy proven involvement in the left lung in March 2014. She had a good response to treatment with 6 cycles of bendamustine/Rituxan, completed in September 2014. She completed 2 years of maintenance Rituxan in August 2016. 3. During follow-up she had CT evidence of progressive pulmonary infiltrates. Her transbronchial biopsy in November 2017 showed noncaseating granulomas, suspicious for sarcoid. She had no response to steroid therapy. 4. She underwent right thoracoscopy with right upper lobe biopsy on 02/28/2019. Pathology showed diffuse/extensive granulomatous inflammation. Stains for microorganisms were negative, and there was no evidence for malignancy. 5. High resolution chest CT revealed reticular opacities involving the upper lobes bilaterally. She also was found to have hypogammaglobulinemia. 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 6. She has had chronic cough, and there also was evidence of bronchiectasis on the high-resolution chest CT. 7. Ulcerative colitis. 8. GERD. 9. Degenerative arthritis. 10. She has chronic insomnia. Problems Addressed with this Encounter and Plan: 1. Patient with low-grade B cell lymphoma, stage III at initial diagnosis in 2000. She had a 13-year remission following treatment with R-CHOP chemotherapy. In March 2014 she was found to have extranodal marginal zone lymphoma with biopsy proven involvement in the left lung. She had a good response to treatment with 6 cycles of bendamustine/Rituxan, completed in September 2014. She completed 2 years of maintenance Rituxan in August 2016. During follow-up there has been progression of pulmonary infiltrates on her follow-up CT scans, but thus far there has been no documented recurrence of the lymphoma. She remains on observation/expectant management. She will be scheduled for a follow-up visit in 6 months. 2. On 02/28/2019 she underwent right thoracoscopy with right upper lobe biopsy on 02/28/2019. Pathology showed diffuse/extensive granulomatous inflammation. Stains for microorganisms were negative, and there was no evidence for malignancy. A subsequent high resolution chest CT revealed reticular opacities involving the upper lobes bilaterally. She also was found to have hypogammaglobulinemia. 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 She was recommended to begin replacement IVIG, which she declined. As such, she is being followed expectantly. Thus far her clinical status has remained stable. 3. She currently has symptoms of sinusitis and upper respiratory tract infection. She will be given antibiotic coverage with Levaquin for 5 days. Signed By: Srinivas Yadav M.D. <<Signature on File>>
== END 2021-04-03 09:46 | disposition home or self-care (01) ==
PROVIDERS: PCP Family Medicine; Visit Provider Internal Medicine Medical Oncology
DX: D80.1 Nonfamilial hypogammaglobulinemia (principal); C88.4 Extranodal marginal zone B-cell lymphoma of mucosa-associated lymphoid tissue [MALT-lymphoma]; J32.9 Chronic sinusitis, unspecified; J06.9 Acute upper respiratory infection, unspecified; K21.9 Gastro-esophageal reflux disease without esophagitis; F51.04 Psychophysiologic insomnia; Z87.891 Personal history of nicotine dependence
CPT/HCPCS: 99214

== ENCOUNTER 2021-10-01 13:02 | Emergency (ER) | payer MEDICAID, SELFPAY ==
[2021-10-01 13:19] VITALS: BP 124/86; PULSE 83; RESP 16; TEMP 36.8; O2SAT 98; BMI 26.9
--- NOTE | 2021-10-01 13:38 | W.ED.ABDPA2 ---
HPI - Abdominal Pain General: Chief Complaint: Abdominal Pain Stated Complaint: left ABD pain Time Seen by Provider: 10/01/21 13:34 [facility]: Medical History (Updated 01/14/21 @ 00:01 by ) Arthritis delivery delivered Chronic insomnia Cyclothymic disorder GERD (gastroesophageal reflux disease) Lung nodule Lymphoma Post-traumatic stress disorder, chronic Ulcerative colitis Surgical History History of surgery on arm Family History Mother Cancer Grandmother Cancer Hodgkin disease Social History Smoking and tobacco status: former smoker Quit status (tobacco): has quit using tobacco Year quit tobacco: 1999 Alcohol intake: never Lives independently: Yes Household members: spouse Marital status: History of recent travel: No Current gender identity: Female Course Vital Signs: Vital signs: Vital Signs Temperature 98.3 F 10/01/21 13:19 Pulse Rate 83 10/01/21 13:19 Respiratory Rate 16 10/01/21 13:19 Blood Pressure 124/86 10/01/21 13:19 Pulse Oximetry 98 10/01/21 13:19 Discharge Plan Discharge Condition: Stable Prescriptions: No Action pantoprazole 40 mg tablet,delayed release (DR/EC) 40 mg PO ONCE 0RF diazepam 10 mg tablet 10 mg PO .COMPLEX Qty: 45 2RF Rx Instructions: 1 tablet in the am and 1/2 tablet at bedtime trazodone 150 mg tablet 150 mg PO .HS Qty: 60 2RF sulfasalazine 500 mg tablet,delayed release (DR/EC) 0.5 g PO BID 0RF fluticasone propionate [Flonase Allergy Relief] 50 mcg/actuation spray,suspension 1 spray INTRANASAL Q12H 30 Days Qty: 18.2 2RF Rx Instructions: administer into each nostril duloxetine 60 mg capsule,delayed release(DR/EC) 120 mg PO DAILY 30 Days Qty: 60 0RF Referrals: Everett Davis MD [Primary Care Provider] - Coding Level of Care Code ED Child & Adolescent Psychiatrist for Han Marroquin
[2021-10-01 13:47] VITALS: BP 124/86; PULSE 86; RESP 16; O2SAT 95
[2021-10-01 14:01] LABS: Basophils # 0.1 10^3/uL (0.0-0.1); Eosinophils # 0.3 10^3/uL (0.0-0.8); Eosinophils % 3.8 %; Hematocrit 40.7 % (37.0-47.0); Hemoglobin 14.2 g/dL (11.5-15.3); Lymphocytes # 1.3 10^3/uL (0.8-4.8); Lymphocytes % 18.2 %; Mean Corpuscular HGB Conc 34.9 g/dL (30.0-36.0); Mean Corpuscular Hemoglobin 30.3 pg (28.0-34.0); Mean Platelet Volume 9.3 fL (7.4-10.4); Monocytes # 0.5 10^3/uL (0.2-0.9); Monocytes % 7.4 %; Neutrophils # 4.95 10^3/uL (1.8-7.7); Neutrophils % 69.3 %; Nucleated Red Blood Cells % 0 %; Platelet Count 260 10^3/cmm (130-400); Red Blood Count 4.68 10^6/uL (4.1-5.3); Red Cell Distribution Width 11.7 % (12.1-15.1); White Blood Count 7.1 10^3/uL (4.0-10.0)
--- NOTE | 2021-10-01 14:01 | XRR_ITS ---
PROCEDURE INFORMATION: Exam: XR Left Ribs with PA Chest Exam date and time: 10/01/2021 2:20 PM Age: 56 years old Clinical indication: Chest wall pain; Left; Additional info: Injury/pain TECHNIQUE: Imaging protocol: XR Left ribs with PA chest. Views: 3 views COMPARISON: CT chest abd pel w con* 03/08/2021 2:38 PM FINDINGS: Lungs: See Heart/Mediastinum finding. Pleural spaces: No pneumothorax. Heart/Mediastinum: Again seen is left hilar/left superior mediastinal superior retraction due to left upper lobe scarring and pleuroparenchymal thickening which appears stable suggesting post treatment neoplastic changes and/or inflammatory/infectious process. No obvious acute lung consolidation. If there is a concern for malignancy recurrence, follow-up assessment including PET CT or contrast-enhanced chest CT correlation or other oncologic imaging may also be helpful. Additionally if there is a concern for metastatic lesions to the ribs, bone scan assessment may also be considered. Bones/joints: No obvious acute displaced rib fracture or destructive bony lesions. Other findings: Three views submitted. XR/XR ribs LT mn 3V w [id number] IMPRESSION: No obvious acute displaced rib fracture. Additional other abnormalities. Please see discussion above.
--- NOTE | 2021-10-01 14:02 | W.ED.CHESTPA ---
Documented by User: STEPHANIE Romo 10/01/21 16:02 HPI - Chest Pain General: Chief Complaint: Abdominal Pain Stated Complaint: left ABD pain Time Seen by Provider: 10/01/21 13:34 Source: patient Mode of arrival: ambulatory Limitations: no limitations History of Present Illness: Patient is a very nice 56-year-old female who presents to the ED today with a complaint of left lateral chest and abdominal pains. She states she initially began noticing symptoms approximately a week ago. Patient states she does have a history of non-Hodgkin's lymphoma and states she sees Dr. Yadav for this. Patient states her last visit with him was in February 2021 and she is due for her 6-month follow-up appointment. She states a few days ago she was walking on some old hardwood when one of the boards gave way causing her to fall. She states she sustained contusions to the lateral aspect of her left leg and states she also scraped the side of her left chest. She reports she has had some rib pain here since that fall. She also reports she was working in the [employer] yesterday and thinks bouncing on the tractor exacerbated this discomfort. MD complaint: chest pain and other (abdominal pain) Pertinent past history: other (lymphoma) Onset (ago): day(s) Timing of current episode: constant Pain location: left chest and other (L abdomen) Pain radiation: none Exacerbating factors: inspiration and movement Associated symptoms: Reports abdominal pain; Deny dyspnea, fever(s), nausea, palpitations, syncope or vomiting Related Data: On Oral Contraceptives: No Review of Systems Const: Denies: fever(s), chills, body aches, fatigue or malaise Card: Reports: chest pain (L lateral chest); Denies: palpitations, irregular heart rhythm, edema, swelling of feet/ankles, lightheadedness, syncope, pre-syncope, dyspnea on exertion, orthopnea, leg pain with exertion or acrocyanosis Resp: Denies: dyspnea, productive cough, non-productive cough, hemoptysis or chest congestion GI: Reports: abdominal pain; Denies: nausea, vomiting or diarrhea : Denies: flank pain, dysuria or hematuria Musc: Denies: neck pain, back pain, extremity pain or joint pain Skin/Breast: Denies: rash Neuro: Denies: headache(s), numbness in extremities, weakness in extremities or sensory changes PFSH ED PFSH: Medical History Arthritis delivery delivered Chronic insomnia Cyclothymic disorder GERD (gastroesophageal reflux disease) Lung nodule Lymphoma Post-traumatic stress disorder, chronic Ulcerative colitis Surgical History History of surgery on arm Family History Mother Cancer Grandmother Cancer Hodgkin disease Social History Smoking and tobacco status: former smoker Quit status (tobacco): has quit using tobacco Year quit tobacco: 1999 Alcohol intake: never Lives independently: Yes Household members: spouse Marital status: History of recent travel: No Current gender identity: Female Physical Exam Const: COMMON NORMALS: no acute distress, average body habitus, patient oriented x3, no limitations, alert and well nourished ORIENTATION/CONSCIOUSNESS: Yes awake, Yes oriented to person, Yes oriented to place and Yes oriented to time HENMT: COMMON NORMALS: normocephalic and atraumatic HEAD & SCALP: normal to inspection, normocephalic and atraumatic Chest: CHEST: Yes localized rib tenderness with anteroposterior compression OTHER: pt does have L posteriolateral rib discomfort with palpation; there is a small area of contusion/ecchymosis present; no crepitus; lung sounds normal Resp: COMMON NORMALS: normal respiratory effort and clear to auscultation bilaterally AUSCULTATION: clear to auscultation bilaterally Cardio: COMMON NORMALS: regular rate and regular rhythm RATE: regular rate RHYTHM: regular rhythm GI: COMMON NORMALS: Normal to inspection, nondistended, normoactive bowel sounds present, Soft to palpation, No hepatosplenomegaly present and no masses INSPECTION: Yes normal to inspection and No abdominal wall ecchymosis AUSCULTATION: Yes normoactive bowel sounds PALPATION: Yes Soft to palpation, Yes Tenderness to palpation present (GI) (mild discomfort throughout L lateral chest/abdomen), No Guarding due to palpation present (GI), No Rigid due to palpation, Yes No hepatosplenomegaly present and Yes Other GI palpation findings present (non surgical exam) : COMMON NORMALS: Yes no CVA tenderness BLADDER/KIDNEY EXAM: Yes no CVA tenderness Back/Pelvis: COMMON NORMALS: no CVA tenderness Extremity: COMMON NORMALS: normal to inspection and full ROM GENERAL: Yes normal exam except as noted Neuro: THOR COMA SCALE: document GCS findings Thor coma scale eye opening: Spontaneous [place] coma scale verbal response: Orientated [place] coma scale motor response: Obey commands Thor coma scale total score: 15 COMMON NORMALS: patient oriented x3, moves all extremities, no focal motor deficits, no sensory deficits noted and gait normal SENSORIUM/ORIENTATION: Yes alert, Yes oriented to person, Yes oriented to place and Yes oriented to time Skin: COMMON NORMALS: no rashes or lesions noted GENERAL SKIN EXAM: no rashes or lesions noted Course Vital Signs: Vital signs: Vital Signs Temperature 98.3 F 10/01/21 13:19 Pulse Rate 86 10/01/21 13:47 Respiratory Rate 16 10/01/21 13:47 Blood Pressure 124/86 10/01/21 13:47 Pulse Oximetry 95 10/01/21 13:47 MDM - Chest Pain Medical Decision Making Patient here with left lateral chest and abdominal pain over the past week or so. She did not have any injury or trauma prior to pain beginning however after pain had already began she did have an incident where she fell through a wooden floor and sustained abrasions to her left lateral thigh and her left chest wall. Patient states she thought her pain initially could be related to a recurrence of her lymphoma. She is due for her 6-month follow-up with Dr. Yadav and repeat staging CT to assess for this. I spoke to Dr. Michelle who recommended plain rib films today to rule out acute injury and foregoing CT scan as she would likely have this performed shortly through oncology. XR showing no obvious rib fractures. Blood work unremarkable. She was offered pain medications but declines. States she will contact oncology for follow up appointment. I will also place information with case management so they can work on this as well. Strict return to ED precautions given. Lab Data : 10/01/21 13:49 10/01/21 13:49 Radiology Impressions Ribs X-Ray 10/01/21 14:01 IMPRESSION: No obvious acute displaced rib fracture. Additional other abnormalities. Please see discussion above. Laboratory Results WBC 7.1 10^3/uL (4.0-10.0) 10/01/21 13:49 RBC 4.68 10^6/uL (4.1-5.3) 10/01/21 13:49 Hgb 14.2 g/dL (11.5-15.3) 10/01/21 13:49 Hct 40.7 % (37.0-47.0) 10/01/21 13:49 MCV 87.0 fl (81-99) 10/01/21 13:49 MCH 30.3 pg (28.0-34.0) 10/01/21 13:49 MCHC 34.9 g/dL (30.0-36.0) 10/01/21 13:49 RDW 11.7 % (12.1-15.1) L 10/01/21 13:49 Plt Count 260 10^3/cmm (130-400) 10/01/21 13:49 MPV 9.3 fL (7.4-10.4) 10/01/21 13:49 Neut % (Auto) 69.3 % 10/01/21 13:49 Lymph % (Auto) 18.2 % 10/01/21 13:49 [place] % (Auto) 7.4 % 10/01/21 13:49 Eos % (Auto) 3.8 % 10/01/21 13:49 Baso % (Auto) 1.0 % 10/01/21 13:49 Neut # (Auto) 4.95 10^3/uL (1.8-7.7) 10/01/21 13:49 Lymph # (Auto) 1.3 10^3/uL (0.8-4.8) 10/01/21 13:49 [place] # (Auto) 0.5 10^3/uL (0.2-0.9) 10/01/21 13:49 Eos # (Auto) 0.3 10^3/uL (0.0-0.8) 10/01/21 13:49 Baso # (Auto) 0.1 10^3/uL (0.0-0.1) 10/01/21 13:49 Nucleated RBC % (auto) 0 % 10/01/21 13:49 Nucleated RBCs # 0.0 /100WBC 10/01/21 13:49 Sodium 137 mmol/L (136-145) 10/01/21 13:49 Potassium 4.5 mmol/L (3.5-5.1) 10/01/21 13:49 Chloride 100 mmol/L (98-107) 10/01/21 13:49 Carbon Dioxide 25 mmol/L (22-29) 10/01/21 13:49 Anion Gap 16.5 (5-19) 10/01/21 13:49 BUN 17 mg/dL (6-20) 10/01/21 13:49 Creatinine 0.8 mg/dL (0.5-0.9) 10/01/21 13:49 GFR Calculation 74.5 mL/min (90-130) L 10/01/21 13:49 Glucose 94 mg/dL (65-115) 10/01/21 13:49 Calculated Osmolality 285 mOsm/kg (285-295) 10/01/21 13:49 Calcium 9.7 mg/dL (8.5-10.5) 10/01/21 13:49 Total Bilirubin 0.3 mg/dL (0.15-1.2) 10/01/21 13:49 AST 27 U/L (0-32) 10/01/21 13:49 ALT 18 U/L (0-33) 10/01/21 13:49 Alkaline Phosphatase 109 IU/L (35-105) H 10/01/21 13:49 Lactate Dehydrogenase 202 U/L (135-214) 10/01/21 13:49 Total Protein 7.4 g/dL (6.6-8.7) 10/01/21 13:49 Albumin 5.0 g/dL (3.5-5.2) 10/01/21 13:49 Globulin 2.4 g/dL (1.3-4.6) 10/01/21 13:49 Lipase 40 U/L (13-60) 10/01/21 13:49 Urine Color Yellow (Yellow) 10/01/21 14:49 Urine Appearance Clear (CLEAR) 10/01/21 14:49 Urine pH 5 (5-7) 10/01/21 14:49 Ur Specific [place] 1.010 (1.005-1.030) 10/01/21 14:49 Urine Protein Neg (Negative) 10/01/21 14:49 Urine Glucose (UA) Norm (Normal) 10/01/21 14:49 Urine Ketones Negative (Negative) 10/01/21 14:49 Urine Blood Neg (Negative) 10/01/21 14:49 Urine Nitrate Negative (Negative) 10/01/21 14:49 Urine Bilirubin Neg (Negative) 10/01/21 14:49 Urine Urobilinogen Norm mg/dL (Negative) 10/01/21 14:49 Ur Leukocyte Esterase Negative (Negative) 10/01/21 14:49 Discharge Plan Discharge Patient Disposition: Home Clinical Impression: Contusion of rib on left side Qualifiers: Encounter type: initial encounter Qualified Code(s): S20.212A - Contusion of left front wall of thorax, initial encounter Condition: Stable Prescriptions: No Action pantoprazole 40 mg tablet,delayed release (DR/EC) 40 mg PO ONCE 0RF diazepam 10 mg tablet 10 mg PO .COMPLEX Qty: 45 2RF Rx Instructions: 1 tablet in the am and 1/2 tablet at bedtime trazodone 150 mg tablet 150 mg PO .HS Qty: 60 2RF sulfasalazine 500 mg tablet,delayed release (DR/EC) 0.5 g PO BID 0RF fluticasone propionate [Flonase Allergy Relief] 50 mcg/actuation spray,suspension 1 spray INTRANASAL Q12H 30 Days Qty: 18.2 2RF Rx Instructions: administer into each nostril duloxetine 60 mg capsule,delayed release(DR/EC) 120 mg PO DAILY 30 Days Qty: 60 0RF ibuprofen 800 mg tablet 800 mg PO TID PRN (Reason: pain) Qty: 90 2RF Discharge Orders: Discharge ED (Routine); Ordered 10/01/21 Ordered By: Veronika Perdomo Referrals: Everett Davis MD [Primary Care Provider] - Activity Restrictions/Additional Instructions: As we discussed I will place information with case management so they can call over to the oncology center and make sure you get a timely follow-up appointment. You may also try to contact them. You need to return to the emergency department for worsening abdominal/chest pain, difficulty breathing, lightheadedness/dizziness/passing out episodes, significant shortness of breath, or any other concerns you may have. I hope you begin to feel better soon. Coding Level of Care Code ED Loan Teller for Chg Fwd Exam Comprehensive Documented by User: Liam Michelle DO 10/02/21 17:31 HPI - Chest Pain General: Chief Complaint: Abdominal Pain Stated Complaint: left ABD pain Time Seen by Provider: 10/01/21 13:34 PFSH ED PFSH: Medical History Arthritis delivery delivered Chronic insomnia Cyclothymic disorder GERD (gastroesophageal reflux disease) Lung nodule Lymphoma Post-traumatic stress disorder, chronic Ulcerative colitis Surgical History History of surgery on arm Family History Mother Cancer Grandmother Cancer Hodgkin disease Social History Smoking and tobacco status: former smoker Quit status (tobacco): has quit using tobacco Year quit tobacco: 1999 Alcohol intake: never Lives independently: Yes Household members: spouse Marital status: History of recent travel: No Current gender identity: Female Physical Exam Neuro: THOR COMA SCALE: document GCS findings [place] coma scale total score: 15 Course Vital Signs: Vital signs: Vital Signs Temperature 98.3 F 10/01/21 13:19 Pulse Rate 86 10/01/21 13:47 Respiratory Rate 16 10/01/21 13:47 Blood Pressure 124/86 10/01/21 13:47 Pulse Oximetry 95 10/01/21 13:47 MDM - Chest Pain Medical Decision Making Patient here with left lateral chest and abdominal pain over the past week or so. She did not have any injury or trauma prior to pain beginning however after pain had already began she did have an incident where she fell through a wooden floor and sustained abrasions to her left lateral thigh and her left chest wall. Patient states she thought her pain initially could be related to a recurrence of her lymphoma. She is due for her 6-month follow-up with Dr. Yadav and repeat staging CT to assess for this. I spoke to Dr. Michelle who recommended plain rib films today to rule out acute injury and foregoing CT scan as she would likely have this performed shortly through oncology. XR showing no obvious rib fractures. Blood work unremarkable. She was offered pain medications but declines. States she will contact oncology for follow up appointment. I will also place information with case management so they can work on this as well. Strict return to ED precautions given. Chart reviewed and patient discussed with midlevel. Agree with assessment and plan. Lab Data : 10/01/21 13:49 10/01/21 13:49 Radiology Impressions Ribs X-Ray 10/01/21 14:01
[2021-10-01 14:20] LABS: Alanine Aminotransferase 18 U/L (0-33); Alkaline Phosphatase 109 IU/L (35-105); Anion Gap 16.5 (5-19); Aspartate Amino Transferase 27 U/L (0-32); Blood Urea Nitrogen 17 mg/dL (6-20); Calcium 9.7 mg/dL (8.5-10.5); Carbon Dioxide 25 mmol/L (22-29); Chloride 100 mmol/L (98-107); Globulin 2.4 g/dL (1.3-4.6); Glomerular Filtration Rate 74.5 mL/min (90-130); Glucose 94 mg/dL (65-115); Lipase 40 U/L (13-60); Osmolality Calculated 285 mOsm/kg (285-295); Potassium 4.5 mmol/L (3.5-5.1); Sodium 137 mmol/L (136-145); Total Bilirubin 0.3 mg/dL (0.15-1.2); Total Protein 7.4 g/dL (6.6-8.7)
[2021-10-01 15:05] LABS: Add Urine Microscopic? NO; Charge for UA Resulting for Rev
[2021-10-01 15:26] LABS: Bilirubin Urine Neg (Negative); Blood Urine Neg (Negative); Glucose Urine UA Norm (Normal); Ketones Urine Negative (Negative); Leukocyte Esterase Urine Negative (Negative); Nitrate Urine Negative (Negative); Protein Urine Neg (Negative); Urine Appearance Clear (CLEAR); Urine Color Yellow (Yellow); Urobilinogen Urine Norm (Negative); pH Urine 5 (5-7)
[2021-10-01 18:00] LABS: Lactate Dehydrogenase 202 U/L (135-214)
--- NOTE | 2021-10-02 14:29 | DCPLANNER ---
Addendum entered by Janey Álvarez 11/21/21 10:46: Patient had a follow up appointment scheduled with oncology - patient did attend appointment. Original Note: integrated campaign manager had message to schedule a follow up appointment for patient with Dr. Yadav at oncology. integrated campaign manager called and [facility] with [facility], gave clinic patients information. A follow up appointment was scheduled for Thursday, October 04, 2021 at 9:[address] Yadav. Patient is aware of appointment.
== END 2021-10-01 16:00 | disposition home or self-care (01) ==
PROVIDERS: Emergency Provider Physician Assistant; PCP Family Medicine
DX: S20.212A Contusion of left front wall of thorax, initial encounter (principal); W13.2XXA Fall from, out of or through roof, initial encounter
CPT/HCPCS: 36415; 71101; 80053; 81003; 83615; 83690; 85025; 99283

== ENCOUNTER 2021-10-04 09:39 | Oncology outpatient (recurring) (ONCR) | payer MEDICAID, SELFPAY ==
--- NOTE | 2021-10-02 08:00 | CT_ITS ---
WS: [id number] CT CHEST, ABDOMEN, AND PELVIS TECHNIQUE: Contrast-enhanced CT of the chest, abdomen, and pelvis with coronal and sagittal reformatt ed images. CLINICAL INFORMATION: abdominal pain, compare to last imaging COMPARISON: CT March 08, 2021 and January 06, 2021 DLP: 1505.[address] scans at [facility] use at least one of these dose optimization techniques: automated e xposure control; mA and/or kV adjustment per patient size (includes targeted exams where dose is matc hed to clinical indication); or iterative reconstruction. CT CHEST: Moderate chronic emphysematous changes. Fibrosis with bronchiectasis LEFT upper lobe similar to previ ous. RIGHT lung is well aerated. No suspicious pulmonary parenchymal opacities. Normal caliber thorac ic aorta. Normal descending thoracic aorta. No mediastinal or hilar lymphadenopathy. No axillary lymp hadenopathy. CT ABDOMEN AND PELVIS: Clustered lymph nodes in the RIGHT lower quadrant with the largest lymph nodes measuring 12 x 14 mm. Some of these were present previously but better visualized today with decompr essed colon. These are nonspecific but can be seen with mesenteric adenitis and may be reactive. Less likely related to recurrent lymphoma. No other lymphadenopathy. Recommend 3 month follow-up. Mild diffuse fatty infiltration of the liver. Normal portal vein and splenic vein. Splenomegaly uncha nged from previous measuring 12 cm [id number]. Adrenal glands are normal. Normal renal parenchymal enhancement. No hydronephrosis. Normal pancreatic parenchymal enhancement. Celiac and SMA appear patent. Normal caliber abdominal aorta. Small amount of free fluid in the cul-d e-sac/RIGHT adnexa. Tiny fat-containing umbilical hernia. Normal sigmoid colon. A few diverticuli. No evidence of acute diverticulitis. CT/CT chest abd pel w con* IMPRESSION: 1. Cluster of enlarged lymph nodes in the RIGHT lower quadrant measuring 12 to 14 mm nonspecific but may be reactive and can be seen with mesenteric adenitis and may be reactive. Less likely related to recurrent/progressive lymphoma Oth erwise no evidence of lymphadenopathy in the chest abdomen or pelvis. Recommend 3 month follow-up abdominal pelvis CT. 2. Mild diffuse fatty infiltration liver. Mild splenomegaly unchanged from pre vious. 3. Prior postoperative changes LEFT partial lung resection with bronchiectasis and fibrosis in the LEFT upper lobe with chronic pleural thickening unchanged from previous. 4. No suspicious new pulmonary parenchymal opacities. 5. No other changes from previous.
[2021-10-02] MEDS: iohexol 300 mg/mL 100 mL Btl IV (09:02)
== END 2021-10-17 23:59 | disposition home or self-care (01) ==
LOC: ONCMED 09:40
PROVIDERS: PCP Family Medicine; Visit Provider Internal Medicine Medical Oncology
DX: C88.4 Extranodal marginal zone B-cell lymphoma of mucosa-associated lymphoid tissue [MALT-lymphoma] (principal); D80.1 Nonfamilial hypogammaglobulinemia; J84.89 Other specified interstitial pulmonary diseases; Z79.891 Long term (current) use of opiate analgesic; Z79.899 Other long term (current) drug therapy; Z92.25 Personal history of immunosuppression therapy; Z87.891 Personal history of nicotine dependence
CPT/HCPCS: 71260; 74177; 99214

== ENCOUNTER 2021-12-26 11:56 | Outpatient (CLI) | payer MEDICAID, SELFPAY ==
--- NOTE | 2021-12-26 12:01 | MM_ITS ---
WS: [id number] BILATERAL 3D TOMOSYNTHESIS DIGITAL SCREENING MAMMOGRAPHY WITH CAD CLINICAL INFORMATION: SCREENING HISTORY: Screening mammogram. No current complaints. COMPARISON: None. TECHNIQUE: Bilateral CC and MLO views. FINDINGS: Scattered fibroglandular densities bilaterally. Slightly irregular asymmetric density inner quadrant RIGHT breast best seen on the cc view. This is likely in the upper inner quadrant. Recommend RIGHT di agnostic mammography and ultrasound for further evaluation. No comparisons. LEFT breast is unremarkable. MM/[place] [id number] IMPRESSION: BI-RADS: 0-Incomplete: Need additional imaging evaluation FOLLOW UP: Need Additional Imaging Recommend RIGHT diagnostic mammography with spot compression views and ultrasou nd for further evaluation. No available comparisons.
== END 2021-12-26 11:57 | disposition home or self-care (01) ==
LOC: RAD 11:58
PROVIDERS: PCP Family Medicine; Visit Provider Nurse Practitioner Family
DX: Z12.31 Encounter for screening mammogram for malignant neoplasm of breast (principal)
CPT/HCPCS: 77063; 77067

== ENCOUNTER 2022-01-22 14:17 | Outpatient (CLI) | payer MEDICAID, SELFPAY ==
--- NOTE | 2022-01-22 14:25 | MM_ITS ---
WS: [id number] RIGHT 3D TOMOSYNTHESIS DIGITAL MAMMOGRAPHY WITH CAD CLINICAL INFORMATION: ABNORMAL MAMMO COMPARISON: December 26, 2021 TECHNIQUE: 3 views of the right breast were obtained. FINDINGS: Scattered fibroglandular densities of the right breast. Again seen is the slightly irregular asymmetr ic density inner quadrant RIGHT breast. This partially compresses out on the spot compression views. Ultrasound described below. ULTRASOUND BREAST RIGHT TECHNIQUE: Ultrasound right breast focused area of concern. CLINICAL INFORMATION: ABNORMAL MAMMO FINDINGS: Ultrasound RIGHT breast 12 to 3:00 position. Normal underlying parenchymal tissue. No cystic or solid lesions. No suspicious lesions to target for biopsy. MM/[place] [id number] IMPRESSION: BI-RADS: 2-Benign FOLLOW UP: 1 Year Follow-up Recommend return to annual screening mammography.
== END 2022-01-22 14:18 | disposition home or self-care (01) ==
PROVIDERS: PCP Family Medicine; Visit Provider Nurse Practitioner Family
DX: R92.8 Other abnormal and inconclusive findings on diagnostic imaging of breast (principal)
CPT/HCPCS: 76642; 77061

== ENCOUNTER 2022-03-12 11:14 | Oncology outpatient (recurring) (ONCR) | payer MEDICAID, SELFPAY ==
[2022-03-12] MEDS: iohexol 350 mg/mL 100 mL Btl PO (11:24)
[2022-03-12] MEDS: iohexol 350 mg/mL 500 mL Btl (per mL) IV (11:24)
--- NOTE | 2022-03-12 12:15 | CT_ITS ---
WS: [id number] CT CHEST, ABDOMEN AND PELVIS WITH CONTRAST HISTORY: Restaging lymphoma, epigastric pain. Pain. TECHNIQUE: Contiguous 5 mm axial imaging performed through the chest, abdomen and pelvis with IV cont rast, oral contrast has been provided. Coronal and sagittal reformats chest. Coronal and sagittal ref ormats through the abdomen and pelvis. All CT scans at [facility] use at least one of these d ose optimization techniques: automated exposure control; mA and/or kV adjustment per patient size (in cludes targeted exams where dose is matched to clinical indication); or iterative reconstruction. CONTRAST: Omnipaque 350; 95 mL IV. DLP: 1512.50 mGy.cm COMPARISON: 10/02/[address]: LEFT upper lobe volume loss and fibrosis. Chronic atelectasis and fibrosis in the posterior LEFT upper lobe. Mild bronchiectasis LEFT upper lobe. Additional minimal interstitial thickening in the RIGHT upper lobe also stable. No mass or pneumonia. No pulmonary nodules. No pleural effusion. He art is normal size. Largest lymph node is 7 mm at the LEFT hilum. No mediastinal or hilar enlarged ly mph nodes. Normal size aorta and pulmonary artery. No hiatal hernia. Abdomen CT: Normal liver. Normal portal vein. Spleen is not enlarged. Spleen measures 11.5 cm in olga th. Normal gallbladder and adrenal glands. Normal renal enhancement with no obstruction. No bile duct dilatation. Normal pancreas. No ascites. No adenopathy. No GI tract obstruction. Mild colonic consti pation. There are a few very small lymph nodes in the RIGHT lower quadrant which were identified on t he prior study. These have not enlarged. There are no new lymph node groups. Pelvic CT: Uterus is slightly retroverted. No free fluid or adenopathy. Normal urinary bladder. No in guinal lymph nodes. No osteoblastic or osteolytic bone disease. CT/CT chest abd pel w con* IMPRESSION: 1. No recurrent lymphadenopathy within the chest, abdomen or pelvis. Small clu ster of lymph nodes along the RIGHT iliac chain have decreased in size since . 2. No ascites. 3. Spleen is top normal size but unchanged. 4. Fibrosis with scarring and bronchiectasis LEFT upper lobe is stable.
== END 2022-03-19 23:59 | disposition home or self-care (01) ==
LOC: RAD 11:15 → ONCMED 03-19 07:28
PROVIDERS: PCP Nurse Practitioner Family; Visit Provider Internal Medicine Medical Oncology
DX: C88.4 Extranodal marginal zone B-cell lymphoma of mucosa-associated lymphoid tissue [MALT-lymphoma] (principal); J84.10 Pulmonary fibrosis, unspecified
CPT/HCPCS: 71260; 74177; Q9967

== ENCOUNTER 2022-03-28 08:38 | Oncology outpatient (recurring) (ONCR) | payer MEDICAID, SELFPAY ==
[2022-03-28 09:08] LABS: Basophils # 0.1 10^3/uL (0.0-0.1); Basophils % 1.2 %; Eosinophils # 0.4 10^3/uL (0.0-0.8); Eosinophils % 6.3 %; Hematocrit 39.7 % (37.0-47.0); Hemoglobin 13.3 g/dL (11.5-15.3); Lymphocytes # 1.4 10^3/uL (0.8-4.8); Mean Corpuscular HGB Conc 33.5 g/dL (30.0-36.0); Mean Corpuscular Hemoglobin 30.5 pg (28.0-34.0); Mean Corpuscular Volume 91.1 fl (81-99); Mean Platelet Volume 9.3 fL (7.4-10.4); Monocytes # 0.5 10^3/uL (0.2-0.9); Monocytes % 8.7 %; Neutrophils # 3.55 10^3/uL (1.8-7.7); Neutrophils % 60.5 %; Nucleated Red Blood Cells % 0 %; Platelet Count 260 10^3/cmm (130-400); Red Blood Count 4.36 10^6/uL (4.1-5.3); Red Cell Distribution Width 11.3 % (12.1-15.1); White Blood Count 5.9 10^3/uL (4.0-10.0)
[2022-03-28 09:25] LABS: Alanine Aminotransferase 14 U/L (0-33); Albumin Level 4.2 g/dL (3.5-5.2); Alkaline Phosphatase 127 U/L (35-105); Anion Gap 14.1 (5-19); Aspartate Amino Transferase 22 U/L (0-32); Blood Urea Nitrogen 20 mg/dL (6-20); Calcium 9.9 mg/dL (8.5-10.5); Carbon Dioxide 27 mmol/L (22-29); Chloride 103 mmol/L (98-107); Globulin 2.4 g/dL (1.3-4.6); Glucose 123 mg/dL (65-115); Lactate Dehydrogenase 173 U/L (135-214); Osmolality Calculated 294 mOsm/kg (285-295); Potassium 4.1 mmol/L (3.5-5.1); Sodium 140 mmol/L (136-145); Total Bilirubin 0.2 mg/dL (0.15-1.2); Total Protein 6.6 g/dL (6.6-8.7)
== END 2022-04-19 23:59 | disposition home or self-care (01) ==
PROVIDERS: PCP Nurse Practitioner Family; Visit Provider Internal Medicine Medical Oncology
DX: C88.4 Extranodal marginal zone B-cell lymphoma of mucosa-associated lymphoid tissue [MALT-lymphoma] (principal); J84.10 Pulmonary fibrosis, unspecified; D71 Functional disorders of polymorphonuclear neutrophils; K21.9 Gastro-esophageal reflux disease without esophagitis; Z92.3 Personal history of irradiation; Z87.891 Personal history of nicotine dependence
CPT/HCPCS: 36415; 80053; 83615; 85025; 99214

== ENCOUNTER 2022-09-23 15:43 | Outpatient (CLI) | payer MEDICAID, SELFPAY ==
--- NOTE | 2022-09-23 16:00 | CTR_ITS ---
PROCEDURE INFORMATION: Exam: CT Chest With Contrast; Diagnostic Exam date and time: 09/23/2022 5:15 PM Age: 57 years old Clinical indication: Condition or disease; Cancer; Other: Lymphoma; Follow-up oncological assessment; Prior surgery; Surgery date: 6+ months; Surgery type: C-sections; Additional info: Restaging TECHNIQUE: Imaging protocol: Diagnostic computed tomography of the chest with contrast. Radiation optimization: All CT scans at this facility use at least one of these dose optimization techniques: automated exposure control; mA and/or kV adjustment per patient size (includes targeted exams where dose is matched to clinical indication); or iterative reconstruction. Contrast material: OMNI 350; Contrast volume: 95 ml; Contrast route: INTRAVENOUS (IV); REPORTING DATA: Count of CT and Cardiac NM exams in prior 12 months: This patient has received 2 known CTs and 0 known cardiac nuclear medicine studies in the 12 months prior to the current study. COMPARISON: CT chest abd pel w con* 03/12/2022 12:58 PM RADIATION DOSE METRICS: Total DLP (mGy-cm): 727.95 FINDINGS: Lungs: Left upper lobe pleuroparenchymal fibrosis and bronchiectasis with similar less prominent findings in the right upper lobe, similar to prior exam. Emphysematous changes. Pleural spaces: Unremarkable. No pneumothorax. No pleural effusion. Heart: Unremarkable. No cardiomegaly. No pericardial effusion. Lymph nodes: Unremarkable. No enlarged lymph nodes. Vasculature: Unremarkable. No aortic aneurysm. Bones/joints: Left mid clavicular chronic fracture. Soft tissues: Unremarkable. COMMENTS: In the absence of a history or active diagnosis of lung cancer, it is recommended that this patient with emphysema be evaluated for enrollment in a low dose CT lung cancer screening program. PROCEDURE INFORMATION: Exam: CT Abdomen And Pelvis With Contrast Exam date and time: 09/23/2022 5:15 PM Age: 57 years old Clinical indication: Condition or disease; Cancer; Other: Lymphoma; Follow-up oncological assessment; Prior surgery; Surgery date: 6+ months; Surgery type: C-sections; Additional info: Restaging TECHNIQUE: Imaging protocol: Computed tomography of the abdomen and pelvis with contrast. Radiation optimization: All CT scans at this facility use at least one of these dose optimization techniques: automated exposure control; mA and/or kV adjustment per patient size (includes targeted exams where dose is matched to clinical indication); or iterative reconstruction. Contrast material: OMNI 350; Contrast volume: 95 ml; Contrast route: INTRAVENOUS (IV); REPORTING DATA: Count of CT and Cardiac NM exams in prior 12 months: This patient has received 2 known CTs and 0 known cardiac nuclear medicine studies in the 12 months prior to the current study. COMPARISON: CT chest abd pel w con* 03/12/2022 12:58 PM RADIATION DOSE METRICS: Total DLP (mGy-cm): 727.95 FINDINGS: Liver: Normal. No mass. Gallbladder and bile ducts: Normal. No calcified stones. No ductal dilation. Pancreas: Normal. No ductal dilation. Spleen: Normal. No splenomegaly. Adrenal glands: Normal. No mass. Kidneys and ureters: Normal. No hydronephrosis. Stomach and bowel: Unremarkable. No obstruction. No mucosal thickening. Appendix: No evidence of appendicitis. Intraperitoneal space: Unremarkable. No free air. No significant fluid collection. Vasculature: Unremarkable. No abdominal aortic aneurysm. Lymph nodes: Unremarkable. No enlarged lymph nodes. Urinary bladder: Unremarkable as visualized. Reproductive: Unremarkable as visualized. Bones/joints: Unremarkable. No acute fracture. Soft tissues: Unremarkable. CT/CT chest abdpel w/*[id number] IMPRESSION: 1. Left upper lobe pleuroparenchymal fibrosis and bronchiectasis with similar less prominent findings in the right upper lobe, similar to prior exam. 2. Emphysematous changes. 3. Left mid clavicular chronic fracture. IMPRESSION: Negative for adenopathy or concerning lesion in the abdomen or pelvis
[2022-09-23] MEDS: iohexol 350 mg/mL 500 mL Btl (per mL) PO (17:33)
[2022-09-23] MEDS: iohexol 350 mg/mL 500 mL Btl (per mL) IV (17:33)
== END 2022-09-23 15:44 | disposition home or self-care (01) ==
LOC: RAD 15:46
PROVIDERS: PCP Nurse Practitioner Family; Visit Provider Internal Medicine Medical Oncology
DX: C88.4 Extranodal marginal zone B-cell lymphoma of mucosa-associated lymphoid tissue [MALT-lymphoma] (principal); J84.10 Pulmonary fibrosis, unspecified; J47.9 Bronchiectasis, uncomplicated; M84.412A Pathological fracture, left shoulder, initial encounter for fracture
CPT/HCPCS: 71260; 74177; Q9967

== ENCOUNTER 2022-09-29 12:08 | Oncology outpatient (recurring) (ONCR) | payer MEDICAID, SELFPAY ==
[2022-09-29 12:27] VITALS: BP 107/76; PULSE 101; RESP 18; TEMP 36.1; O2SAT 97
--- NOTE | 2022-09-29 12:33 | PC.NURSE ---
lab drawn via RAC x2 attempt tolerated well, pressure dressing applied.
[2022-09-29 12:40] LABS: Basophils # 0.1 10^3/uL (0.0-0.1); Basophils % 0.9 %; Eosinophils # 0.2 10^3/uL (0.0-0.8); Eosinophils % 3.6 %; Hemoglobin 14.1 g/dL (11.5-15.3); Lymphocytes # 1.3 10^3/uL (0.8-4.8); Lymphocytes % 19.6 %; Mean Corpuscular HGB Conc 33.6 g/dL (30.0-36.0); Mean Corpuscular Hemoglobin 29.8 pg (28.0-34.0); Mean Corpuscular Volume 88.8 fl (81-99); Mean Platelet Volume 8.9 fL (7.4-10.4); Monocytes # 0.5 10^3/uL (0.2-0.9); Monocytes % 7.1 %; Neutrophils % 68.5 %; Nucleated Red Blood Cells % 0 %; Platelet Count 220 10^3/cmm (130-400); Red Blood Count 4.73 10^6/uL (4.1-5.3); Red Cell Distribution Width 11.4 % (12.1-15.1); White Blood Count 6.7 10^3/uL (4.0-10.0)
[2022-09-29 13:05] LABS: Alanine Aminotransferase 18 U/L (0-33); Albumin Level 4.8 g/dL (3.5-5.2); Alkaline Phosphatase 99 U/L (35-105); Anion Gap 13.7 (5-19); Aspartate Amino Transferase 25 U/L (0-32); Blood Urea Nitrogen 18 mg/dL (6-20); Calcium 9.5 mg/dL (8.5-10.5); Carbon Dioxide 24 mmol/L (22-29); Chloride 102 mmol/L (98-107); Globulin 1.9 g/dL (1.3-4.6); Glomerular Filtration Rate 64.8 mL/min (90-130); Glucose 90 mg/dL (65-115); Lactate Dehydrogenase 174 U/L (135-214); Osmolality Calculated 281 mOsm/kg (285-295); Potassium 4.7 mmol/L (3.5-5.1); Sodium 135 mmol/L (136-145); Total Bilirubin 0.2 mg/dL (0.15-1.2); Total Protein 6.7 g/dL (6.6-8.7)
== END 2022-10-17 23:59 | disposition home or self-care (01) ==
PROVIDERS: PCP Nurse Practitioner Family; Visit Provider Internal Medicine Medical Oncology
DX: Z08 Encounter for follow-up examination after completed treatment for malignant neoplasm (principal); Z85.72 Personal history of non-Hodgkin lymphomas; L21.9 Seborrheic dermatitis, unspecified; J84.89 Other specified interstitial pulmonary diseases; D71 Functional disorders of polymorphonuclear neutrophils; Z79.899 Other long term (current) drug therapy; Z87.891 Personal history of nicotine dependence; Z92.21 Personal history of antineoplastic chemotherapy; Z92.25 Personal history of immunosuppression therapy
CPT/HCPCS: 36415; 80053; 83615; 85025; 99213

== ENCOUNTER 2023-03-04 08:37 | Oncology outpatient (recurring) (ONCR) | payer MEDICAID, SELFPAY ==
[2023-03-04 08:52] VITALS: BP 106/72; PULSE 84; RESP 18; TEMP 37.1; O2SAT 98
[2023-03-04 09:14] LABS: Basophils # 0.1 10^3/uL (0.0-0.1); Basophils % 1.3 %; Eosinophils # 0.5 10^3/uL (0.0-0.8); Eosinophils % 8.8 %; Hematocrit 38.1 % (36-47); Lymphocytes % 19.4 %; Mean Corpuscular HGB Conc 33.6 g/dL (30-55); Mean Corpuscular Hemoglobin 30.5 pg (27-33); Mean Corpuscular Volume 90.7 fl (85-98); Mean Platelet Volume 9.1 fL (7.4-10.4); Monocytes # 0.5 10^3/uL (0.2-0.9); Monocytes % 10.1 %; Neutrophils # 3.16 10^3/uL (1.8-7.7); Neutrophils % 60.2 %; Nucleated Red Blood Cells % 0 %; Platelet Count 236 10^3/cmm (157-399); Red Cell Distribution Width 11.7 % (12.1-15.1); White Blood Count 5.25 10^3/uL (3.29-11.43)
[2023-03-04 09:38] LABS: Alanine Aminotransferase 20 U/L (0-33); Albumin Level 4.6 g/dL (3.5-5.2); Alkaline Phosphatase 133 U/L (35-105); Anion Gap 13.4 (5-19); Aspartate Amino Transferase 28 U/L (0-32); Blood Urea Nitrogen 19 mg/dL (6-20); Calcium 9.3 mg/dL (8.5-10.5); Carbon Dioxide 26 mmol/L (22-29); Chloride 105 mmol/L (98-107); Globulin 2.3 g/dL (1.3-4.6); Glomerular Filtration Rate 64.8 mL/min (90-130); Glucose 107 mg/dL (65-115); Lactate Dehydrogenase 179 U/L (135-214); Osmolality Calculated 293 mOsm/kg (285-295); Potassium 4.4 mmol/L (3.5-5.1); Sodium 140 mmol/L (136-145); Total Bilirubin 0.2 mg/dL (0.15-1.2); Total Protein 6.9 g/dL (6.6-8.7)
== END 2023-03-19 23:59 | disposition home or self-care (01) ==
LOC: ONCMED 08:38
PROVIDERS: Nurse Practitioner Family; PCP Nurse Practitioner Family; Visit Provider Internal Medicine Medical Oncology
DX: C88.4 Extranodal marginal zone B-cell lymphoma of mucosa-associated lymphoid tissue [MALT-lymphoma] (principal); J84.10 Pulmonary fibrosis, unspecified; D71 Functional disorders of polymorphonuclear neutrophils; K21.9 Gastro-esophageal reflux disease without esophagitis; Z92.3 Personal history of irradiation; Z87.891 Personal history of nicotine dependence
CPT/HCPCS: 36415; 80053; 83615; 85025; 99214

== ENCOUNTER 2023-03-17 12:40 | Outpatient (CLI) | payer MEDICAID, SELFPAY ==
--- NOTE | 2023-03-17 14:00 | CT_ITS ---
WS: [id number] CT CHEST, ABDOMEN, AND PELVIS TECHNIQUE: Contrast-enhanced CT of the chest, abdomen, and pelvis with coronal and sagittal reformatt ed images. CLINICAL INFORMATION: f/u lymphoma COMPARISON: CT 09/23/2022 DLP: 686.[address] scans at [facility] use at least one of these dose optimization techniques: automated e xposure control; mA and/or kV adjustment per patient size (includes targeted exams where dose is matc hed to clinical indication); or iterative reconstruction. CT CHEST: Moderate chronic emphysematous changes. Stable pleural-parenchymal scarring in the LEFT upper lobe at the lung apex with bronchiectasis. This is unchanged from previous. Normal caliber thoracic aorta. P roximal main pulmonary arteries are normal. No mediastinal or hilar lymphadenopathy. No axillary lymp hadenopathy. Stable slight parenchymal scarring in the RIGHT upper lobe unchanged. No new suspicious pulmonary par enchymal opacities. CT ABDOMEN AND PELVIS: Mild diffuse fatty infiltration of the liver. Normal portal vein and splenic vein. Normal GE junction . Normal spleen. Adrenal glands are normal. Normal renal parenchymal enhancement. No hydronephrosis. Tiny fat-containing umbilical hernia. Gallbladder is contracted. Normal pancreatic parenchymal enhanc ement. Urine distended bladder. No evidence of high-grade small or large bowel obstruction. Normal caliber a bdominal aorta. No adenopathy in the abdomen or pelvis. Normal lumbar spine. IMPRESSION: 1. No adenopathy in the chest abdomen or pelvis. 2. Stable pleural-parenchymal scarring in the LEFT upper lobe with bronchiectasis. 3. Mild hepatomegaly with diffuse fatty infiltration of the liver. 4. No other suspicious findings or interval changes.
[2023-03-17] MEDS: iohexol 350 mg/mL 500 mL Btl (per mL) PO (14:10)
[2023-03-17] MEDS: iohexol 350 mg/mL 500 mL Btl (per mL) IV (14:11)
== END 2023-03-17 12:41 | disposition home or self-care (01) ==
LOC: RAD 12:41
PROVIDERS: PCP Nurse Practitioner Family; Visit Provider Nurse Practitioner Family
DX: C88.4 Extranodal marginal zone B-cell lymphoma of mucosa-associated lymphoid tissue [MALT-lymphoma] (principal); J47.9 Bronchiectasis, uncomplicated; K76.0 Fatty (change of) liver, not elsewhere classified; R16.0 Hepatomegaly, not elsewhere classified
CPT/HCPCS: 71260; 74177; Q9967

== ENCOUNTER → 2023-04-10 09:03 | Outpatient (BNVA) | payer MEDICAID, SELFPAY | PROVIDERS: PCP Nurse Practitioner Family; Referring Provider Nurse Practitioner Family; Visit Provider Nurse Practitioner Family | DX: L21.8 Other seborrheic dermatitis (principal); H01.131 Eczematous dermatitis of right upper eyelid; H01.134 Eczematous dermatitis of left upper eyelid; H01.132 Eczematous dermatitis of right lower eyelid; H01.135 Eczematous dermatitis of left lower eyelid | CPT/HCPCS: 99204 ==

== ENCOUNTER 2024-03-01 11:14 | Oncology outpatient (recurring) (ONCR) | payer OTHER, SELFPAY ==
[2024-03-01 11:33] LABS: Basophils # 0.1 10^3/uL (0.0-0.1); Eosinophils # 0.4 10^3/uL (0.0-0.8); Eosinophils % 5.5 %; Hematocrit 41.6 % (36-47); Lymphocytes # 1.4 10^3/uL (0.8-4.8); Lymphocytes % 19.8 %; Mean Corpuscular HGB Conc 34.1 g/dL (30-55); Mean Corpuscular Hemoglobin 30.9 pg (27-33); Mean Corpuscular Volume 90.6 fl (85-98); Mean Platelet Volume 8.9 fL (7.4-10.4); Monocytes # 0.5 10^3/uL (0.2-0.9); Monocytes % 7.2 %; Neutrophils # 4.57 10^3/uL (1.8-7.7); Neutrophils % 66.2 %; Nucleated Red Blood Cells % 0 %; Platelet Count 229 10^3/cmm (157-399); Red Blood Count 4.59 10^6/uL (3.85-5.65); Red Cell Distribution Width 12.1 % (12.1-15.1); White Blood Count 6.91 10^3/uL (3.29-11.43)
[2024-03-01 11:53] LABS: Alanine Aminotransferase 28 U/L (0-33); Albumin Level 4.4 g/dL (3.5-5.2); Alkaline Phosphatase 156 U/L (35-105); Anion Gap 13.7 (5-19); Aspartate Amino Transferase 35 U/L (0-32); Blood Urea Nitrogen 24 mg/dL (6-20); Carbon Dioxide 25 mmol/L (22-29); Chloride 104 mmol/L (98-107); Globulin 2.1 g/dL (1.3-4.6); Glomerular Filtration Rate 73.9 mL/min (90-130); Glucose 112 mg/dL (65-115); Lactate Dehydrogenase 176 U/L (135-214); Osmolality Calculated 291 mOsm/kg (285-295); Potassium 4.7 mmol/L (3.5-5.1); Sodium 138 mmol/L (136-145); Total Bilirubin 0.2 mg/dL (0.15-1.2); Total Protein 6.5 g/dL (6.6-8.7)
== END 2024-03-19 23:59 | disposition home or self-care (01) ==
PROVIDERS: PCP Nurse Practitioner Family; Visit Provider Internal Medicine Medical Oncology
DX: C88.40 Extranodal marginal zone B-cell lymphoma of mucosa-associated lymphoid tissue [MALT-lymphoma] not having achieved remission (principal); Z53.9 Procedure and treatment not carried out, unspecified reason
CPT/HCPCS: 36415; 80053; 83615; 85025